=== PATIENT | male | born 1940 | race Hispanic/Latino ===

== ENCOUNTER 2017-06-08 09:26 | Outpatient (CLI) | payer MEDICARE ==
--- NOTE | 2017-06-08 12:14 | CT ---
CT OF THE ABDOMEN AND PELVIS WITH AND WITHOUT IV CONTRAST: INDICATION: Gross hematuria and difficulty urinating. COMPARISON: None. FINDINGS: No renal or ureteral calculus is evident. No definite urothelial lesion is identified. There is a large prostate measuring 8/5 cm. The enlargement of the prostate is displacing the distal left uret er slightly anteriorly and superiorly. There is no alfredo hydronephrosis. There are tiny renal hypodensities bilaterally likely reflective of tiny cysts. There is a small cy st within the right hepatic lobe and left hepatic lobe. There is a moderate pericardial effusion. There are perihilar interstitial opacities involving both lung bases, right greater than left, whic h may reflect edema. The adrenal glands are normal appearing. The spleen and pancreas are normal-appearing. There are moderate vascular calcifications. There is scattered colonic diverticula. There are numerous surgical clips involving the lower abdominal wall likely related to prior hernia repair. There is diffuse osteopenia. There is scattered degenerative change. IMPRESSION: 1. No solid renal lesion or urothelial lesion identified. No renal or ureteral calculus noted. Th ere are small renal cysts bilaterally. 2. Enlarged prostate. The enlarged prostate is slightly displacing the distal aspect of the left u reter anteriorly and superiorly. There is no associated hydronephrosis. 3. Hepatic cysts. 4. Moderate cardiomegaly with a suggestion of some mild congestive heart failure versus volume over load. Recommend correlation. 5. Colonic diverticulosis. 6. Postsurgical change of prior inguinal hernia repairs. 7. Other chronic findings as above. CODE T POS: [facility]
[2017-06-08] MEDS ORDERED: Iopamidol 370 76% 100 ML VIAL ONE (14:08)
== END 2017-06-08 09:27 | disposition home or self-care (01) ==
LOC: CT 09:26
PROVIDERS: ATTEND Urology
DX: R31.0 Gross hematuria (principal); R33.9 Retention of urine, unspecified; N40.0 Benign prostatic hyperplasia without lower urinary tract symptoms; K76.89 Other specified diseases of liver; I51.7 Cardiomegaly; K57.30 Diverticulosis of large intestine without perforation or abscess without bleeding
CPT/HCPCS: 74178

== ENCOUNTER 2017-06-20 10:41 | Emergency (ER) | payer MEDICARE ==
[2017-06-20 11:39] LABS: #Eosinphils 0.1 thou/uL (0.0-0.7); #Lymphocytes 0.8 thou/uL (1.20-3.40); #Monocytes 0.6 thou/uL (0.11-0.59); #Neutrophils 5.1 thou/uL (1.40-6.50); %Basophils 0.3 % (0.0-1.0); %Eosinophils 1.7 % (0.0-10.0); %Lymphocytes 11.8 % (21.0-51.0); %Monocytes 8.7 % (0.0-10.0); Hematocrit 42.1 % (42.0-52.0); Mean Platelet Volume 6.8 fL (7.4-10.4); White Blood Cell (WBC) Count 6.6 thou/uL (4.8-10.8)
[2017-06-20 12:01] LABS: ALT (SGPT) 16 U/L (8-55); AST (SGOT) 18 U/L (5-34); Alkaline Phosphatase 71 U/L (40-150); Anion Gap 13 mmol/L (10-20); BUN (Urea Nitrogen) 20 mg/dL (8.4-25.7); Bilirubin, Total 0.7 mg/dL (0.2-1.2); Calc. Creatinine Clearance 0 mL/min (70-130); Calcium 9.4 mg/dL (7.8-10.44); Carbon Dioxide 23 mmol/L (23-31); Chloride 104 mmol/L (98-107); Estimated GFR-MDRD 79; Globulin 3.9 g/dL (2.4-3.5); Protein, Total 7.8 g/dL (5.8-8.1)
[2017-06-20 12:04] LABS: Bilirubin Negative (Negative); Blood, Urine Large (Negative); Glucose, Urine (Dipstick) Negative (Negative); Ketone, Urine Negative (Negative); Nitrite Negative (Negative); Protein, Urine (Dipstick) 30 mg/dL (Neg-Trace); Urobilinogen 0.2 mg/dL (0.2-1.0)
[2017-06-20 12:06] LABS: Bacteria/HPF None Seen HPF (None Seen); Hyaline Casts/LPF 0-3 HYALINE CAST LPF (0-3 Hyaline); Squamous Epithelial 0-3 HPF (0-3); WBC/HPF 0-3 HPF (0-3)
== END 2017-06-20 12:29 | disposition home or self-care (01) ==
LOC: ERS 10:41
DX: R33.9 Retention of urine, unspecified (principal); I10 Essential (primary) hypertension
CPT/HCPCS: 36415; 51702; 80053; 81003; 81015; 85025

== ENCOUNTER 2017-06-26 14:38 | Emergency (ER) | payer MEDICARE ==
[2017-06-26 15:18] LABS: Hematocrit 37.3 % (42.0-52.0); Mean Platelet Volume 6.7 fL (7.4-10.4); Red Blood Cell (RBC) Count 4.36 mill/uL (4.70-6.10); White Blood Cell (WBC) Count 12.7 thou/uL (4.8-10.8)
[2017-06-26 15:31] LABS: Lactic Acid - Sepsis 1.7 mmol/L (0.5-2.2)
[2017-06-26 15:36] LABS: ALT (SGPT) 25 U/L (8-55); AST (SGOT) 27 U/L (5-34); Alkaline Phosphatase 56 U/L (40-150); Anion Gap 12 mmol/L (10-20); BUN (Urea Nitrogen) 26 mg/dL (8.4-25.7); Bilirubin, Total 0.5 mg/dL (0.2-1.2); Calc. Creatinine Clearance 0 mL/min (70-130); Calcium 8.6 mg/dL (7.8-10.44); Carbon Dioxide 23 mmol/L (23-31); Chloride 100 mmol/L (98-107); Estimated GFR-MDRD 39; Globulin 3.5 g/dL (2.4-3.5); Protein, Total 6.9 g/dL (5.8-8.1)
[2017-06-26 15:44] LABS: Band 4 % (5-11); Neutrophil 86 % (42-75)
[2017-06-26 16:21] LABS: Bilirubin Negative (Negative); Blood, Urine Large (Negative); Glucose, Urine (Dipstick) Negative (Negative); Ketone, Urine Negative (Negative); Nitrite Negative (Negative); Protein, Urine (Dipstick) Trace mg/dL (Neg-Trace)
[2017-06-26 16:24] LABS: Bacteria/HPF None Seen HPF (None Seen); Hyaline Casts/LPF 0-3 HYALINE CAST LPF (0-3 Hyaline); RBC/HPF 21-50 HPF (0-3); Squamous Epithelial 0-3 HPF (0-3)
--- NOTE | 2017-06-26 16:29 | RAD ---
SINGLE VIEW OF THE CHEST: Comparison: 01-30-13 History: Weakness and fever. FINDINGS: Single view of the chest shows an enlarged but stable cardiomediastinal silhouette. Increased inters titial markings are present. There is no evidence of consolidation or pleural effusion. IMPRESSION: No evidence of acute cardiopulmonary disease. POS: [facility]
== END 2017-06-26 17:57 | disposition home or self-care (01) ==
LOC: ERS 14:38
DX: E86.0 Dehydration (principal); R50.9 Fever, unspecified; I10 Essential (primary) hypertension; N40.1 Benign prostatic hyperplasia with lower urinary tract symptoms; N39.498 Other specified urinary incontinence
CPT/HCPCS: 36415; 71010; 80053; 81003; 81015; 83605; 85025; 87040; 87077; 87086; 87186; 93005; 96360

== ENCOUNTER 2017-06-28 20:29 | Inpatient (IN) | payer MEDICARE ==
[2017-06-28 21:29] LABS: Hematocrit 33.8 % (42.0-52.0); Mean Platelet Volume 7.1 fL (7.4-10.4); Red Blood Cell (RBC) Count 3.99 mill/uL (4.70-6.10); White Blood Cell (WBC) Count 8.7 thou/uL (4.8-10.8)
[2017-06-28 21:41] LABS: Bilirubin Negative (Negative); Glucose, Urine (Dipstick) Negative (Negative); Ketone, Urine Negative (Negative); Nitrite Negative (Negative); Protein, Urine (Dipstick) 30 mg/dL (Neg-Trace); Urobilinogen 0.2 mg/dL (0.2-1.0)
[2017-06-28 21:42] LABS: Lactic Acid - Sepsis 1.1 mmol/L (0.5-2.2)
[2017-06-28 21:43] LABS: Bacteria/HPF 1+ HPF (None Seen); Squamous Epithelial 0-3 HPF (0-3)
[2017-06-28 21:43] LABS: Band 14 % (5-11); Neutrophil 82 % (42-75)
[2017-06-28 21:49] LABS: ALT (SGPT) 39 U/L (8-55); AST (SGOT) 54 U/L (5-34); Alkaline Phosphatase 59 U/L (40-150); Anion Gap 11 mmol/L (10-20); BUN (Urea Nitrogen) 46 mg/dL (8.4-25.7); Bilirubin, Total 0.4 mg/dL (0.2-1.2); Calc. Creatinine Clearance 0 mL/min (70-130); Calcium 8.2 mg/dL (7.8-10.44); Carbon Dioxide 23 mmol/L (23-31); Chloride 96 mmol/L (98-107); Estimated GFR-MDRD 34; Globulin 3.4 g/dL (2.4-3.5); Protein, Total 6.2 g/dL (5.8-8.1)
[2017-06-28 22:00] LABS: Blood, Urine Small (Negative); Hyaline Casts/LPF 0-3 HYALINE CAST LPF (0-3 Hyaline); Transitional Epithelial 0-3 HPF (0-3); Yeast-All Forms None Seen HPF (None Seen)
[2017-06-28] MEDS ORDERED: cefTRIAXone\\ROCEPHIN 2 GM VIAL ONE (22:02)
[2017-06-28] MEDS ORDERED: ADMIXTURE FEE IVPB SCH (22:15)
[2017-06-28] MEDS ORDERED: Vancomycin HCl 1.25 GM in Sodium Chloride 0.9% 250 ML 250 ML IVPB SCH (22:15)
[2017-06-28] MEDS ORDERED: GENTAMICIN SULFATE IVPB SCH (22:15)
[2017-06-28] MEDS ORDERED: SODIUM CHLORIDE IVPB SCH (22:15)
[2017-06-28] MEDS ORDERED: Gentamicin Sulfate 360 MG, Admixture Fee 1 EACH in Sodium Chloride 0.9% 100 ML IVPB SCH (22:30)
[2017-06-28] MEDS ORDERED: diphenhydrAMINE 50 MG/ML VIAL ONE (23:01)
[2017-06-28] MEDS ORDERED: methylPREDNISolone Sod Succ/PF 125 MG/2 ML VIAL ONE (23:04)
[2017-06-28] MEDS ORDERED: Water For Inject, Bacteriostat 30 ML ONE (23:04)
[2017-06-28] MEDS ORDERED: Famotidine/PF 20 mg/2ml Vial ONE (23:13)
[2017-06-28] MEDS ORDERED: Albuterol Sulfate 2.5 mg/3 ml Neb ONE (23:37)
--- NOTE | 2017-06-28 23:40 | PDOC.EVN ---
Event Note - Event Note Event Note: [id number] H&P Dictated 1. UTI 2. SEPSIS 3. EDUAR 4. Hyponatremia 5. Allergic reaction plan: see orders
[2017-06-28] MEDS ORDERED: Acetaminophen 325 MG TAB PO PRN (23:41)
[2017-06-28] MEDS ORDERED: Ondansetron HCl/PF 4 MG/2 ML Vial IVP PRN (23:41)
[2017-06-28] MEDS ORDERED: HYDROcodone/Acetaminophen 5/325 mg Tablet PO PRN (23:41)
[2017-06-29] MEDS: Sodium Chloride 0.9% 1,000 ML IV SCH ×4 (01:07→20:42)
[2017-06-29] MEDS ORDERED: Vancomycin HCl 1.25 GM in Sodium Chloride 0.9% 250 ML 250 ML IVPB SCH ×2 (01:15→14:00)
[2017-06-29 05:35] LABS: Hematocrit 33.9 % (42.0-52.0); Mean Platelet Volume 7.3 fL (7.4-10.4); Red Blood Cell (RBC) Count 3.98 mill/uL (4.70-6.10); White Blood Cell (WBC) Count 7.1 thou/uL (4.8-10.8)
[2017-06-29 05:49] LABS: Band 16 % (5-11); Neutrophil 80 % (42-75)
[2017-06-29 05:53] LABS: Anion Gap 10 mmol/L (10-20); BUN (Urea Nitrogen) 42 mg/dL (8.4-25.7); Calc. Creatinine Clearance 46 mL/min (70-130); Calcium 8.2 mg/dL (7.8-10.44); Carbon Dioxide 26 mmol/L (23-31); Chloride 102 mmol/L (98-107); Estimated GFR-MDRD 42
[2017-06-29] MEDS ORDERED: diphenhydrAMINE 25 MG CAP PO PRN (06:00)
--- NOTE | 2017-06-29 07:41 | HP ---
DATE OF ADMISSION: 06/28/2017 CHIEF COMPLAINT: Fever and weakness. HISTORY OF PRESENT ILLNESS: The patient is a 77 years old male with past medical history of BPH, hypertension, now came to the hospital because of fever. The patient started having fever and chills on . The patient went and saw the urologist. The patient was diagnosed with urinary tract infection and patient was advised to start ciprofloxacin. The patient started taking ciprofloxacin since Tuesday, symptoms did not improve on Tuesday, so patient was brought to the ER. Upon ER arrival, the patient was found to be dehydrated, so patient was given IV fluids and advised to continue Cipro as an outpatient. The patient's symptoms did not improve in the last few days having worsening fever and also having cough, also having generalized body aches and any loss of appetite, so patient was brought to the ER. Upon ER arrival, the patient was diagnosed to have urinary tract infection, so patient was given Rocephin, but the patient developed an allergic reaction with Rocephin. The patient developed some erythema on the chest and on the face and also had some lip swelling and eye swelling, so Rocephin was stopped and patient was given IV Benadryl, Pepcid and Solu-Medrol also. The patient denies any other complaints at this time. PAST MEDICAL HISTORY: Hypertension, BPH. PAST SURGICAL HISTORY: Hernia repair. SOCIAL HISTORY: Denies smoking, denies alcohol, denies any drugs. FAMILY HISTORY: Positive for heart problems. REVIEW OF SYSTEMS: Constitutional: Positive for fever, chills, body aches. Eyes: Positive for eye swelling following the allergy infection. Throat: Denies any throat pain. Positive for lip swelling. Neck: Denies any neck pain. Cardiovascular system: Denies chest pain, denies palpitations. Respiratory system: Denies any cough, denies any sputum production. Gastrointestinal: Denies nausea, vomiting. Genitourinary: Positive for urinary tract infection and prostate problems. Integumentary: Positive for erythematous rash. Psychiatric: Denies any depression. Denies any anxiety. All other review of systems are reviewed and are negative. PHYSICAL EXAMINATION: CONSTITUTIONAL/VITAL SIGNS: At the time of H and P performed, blood pressure is 103/55, pulse ox is 97%, respiratory rate 18. GENERAL: The patient appears tired. Eyes: Positive for swelling. Tongue: No swelling seen. Throat: Clear, no postnasal drainage seen. No swelling in the posterior tongue seen, able to visualize uvula and posterior pharynx. Lip, slight swelling present, lower lip. NECK: Supple, no JVD. CARDIOVASCULAR SYSTEM: S1, S2 present. Regular rate and rhythm, no murmurs, no rubs, no gallops. RESPIRATORY SYSTEM: No wheezing, no rhonchi. Breath sounds bilaterally. GASTROINTESTINAL: Abdomen: Soft, nontender, no guarding, no organomegaly, no masses felt. MUSCULOSKELETAL: No edema. INTEGUMENTARY: Positive for erythema seen on the chest wall and on the right side of the neck. CRANIAL NERVOUS SYSTEM: Awake, follows commands. Speech clear. PSYCHIATRIC: Mood appropriate at this time. LABORATORY DATA: At the time of H and P performed, sodium 127, potassium 3.8, chloride 96, CO2 of 23, BUN 46, creatinine 1.9, AST 54, ALT 39, albumin 2.8. UA positive for greater than 50 to too numerous to count wbc's. White count 8.7 , hemoglobin 11.3, platelet count is 195. ASSESSMENT AND PLAN: The patient is 77 years old male who was admitted secondary to urinary tract infection. 1. Sepsis secondary to urinary tract infection. Plan to broad spectrum antibiotics. Plan to send urine for culture and sensitivity and blood cultures also. We will follow the patient closely. 2. Urinary tract infection. Reason culture done showed Enterococcus urinary tract infection. We will go ahead and start patient on vancomycin and also on meropenem. We will monitor the patient closely for any cross reactivity. We will go ahead and consult ID to evaluate the patient. 3. History of benign prostatic hypertrophy. Continue Flomax. Plan to consult the patient's urologist as family requested. 4. Hypertension. Hold blood pressure medications. 5. Acute kidney injury and hyponatremia secondary to NSAID usage and hypotension and hypovolemia. Plan to start patient on IV fluids, check BMP in a.m. The urine creatinine does not improve, we will do further urine studies. 6. Allergic reaction: will start PN benadryl, iv solumderol and pepcid The case was discussed in detail with the patient and patient's family also. I did explain to the patient's son, patient's daughter, and the patient's also in detail and explained the patient's condition, they all understood, and answered all of that questions also. ALDEN
[2017-06-29] MEDS: Aztreonam 1 GM in Sodium Chloride 0.9% 100 ML IVPB SCH ×2 (09:33→20:43)
[2017-06-29] MEDS: Heparin 5,000 UNITS/ML VIAL SC SCH ×2 (09:34→09:46)
[2017-06-29] MEDS: Tamsulosin HCl 0.4 MG CAP PO SCH (09:34)
--- NOTE | 2017-06-29 11:51 | PDOC.PN ---
- Subjective Encounter Start Date: 06/29/17 Encounter Start Time: 11:45 Subjective: f/u for UTI with Enterococcus and allergic response to Rocephin. No -: documented fever and WBC normal. Receiving Aztreonam and Vancomycin -: No new complaints. - Objective MAR Reviewed: Yes Vital Signs & Weight: Vital Signs (12 hours) Temp Pulse Resp BP Pulse Ox 06/29/17 07:59 97.5 F L 66 20 143/63 H 97 06/29/17 04:28 97.8 F 71 20 108/55 L 96 06/29/17 00:45 98.0 F 78 18 125/57 L 100 06/29/17 00:28 98.0 F 78 18 100 I&O: 06/28/17 06/29/17 06/30/17 06:59 06:59 06:59 Intake Total 625 Output Total 650 Balance -25 Result Diagrams: 06/29/17 04:32 06/29/17 04:32 Additional Labs: Microbiology 06/26/17 16:15 Nasal swab Influenza Types A,B Direct EIA - Final 06/26/17 16:02 Urine voided Urine Culture - Final Enterococcus species 06/28/17 21:12 Venous blood - Right Hand Blood Culture - Preliminary Specimen has been received and culture in progress. No Growth to date. 06/28/17 21:00 Venous blood - Right Arm Blood Culture - Preliminary Specimen has been received and culture in progress. No Growth to date. Laboratory Tests 06/20/17 06/26/17 06/28/17 11:25 14:55 21:12 Neutrophils % (Manual) Band Neuts % (Manual) Creatinine 0.93 1.70 H 1.92 H Estimated GFR (MDRD) 79 39 34 06/28/17 06/29/17 21:12 04:32 Neutrophils % (Manual) 82 H 80 H Band Neuts % (Manual) 14 H 16 H Creatinine Estimated GFR (MDRD) EKG Reviewed by me: Yes (Tele - SR in 60's) Phys Exam - Physical Examination Constitutional: NAD HEENT: PERRLA, oral pharynx no lesions Neck: no JVD, supple Respiratory: no wheezing, clear to auscultation bilateral Cardiovascular: RRR Gastrointestinal: soft, non-tender, no distention, positive bowel sounds Musculoskeletal: no edema, pulses present Neurological: normal sensation, moves all 4 limbs Psychiatric: A&O x 3 Skin: normal turgor, cap refill <2 seconds Dx/Plan (1) UTI (urinary tract infection) due to Enterococcus Code(s): N39.0 - URINARY TRACT INFECTION, SITE NOT SPECIFIED; B95.2 - ENTEROCOCCUS THE CAUSE OF DISEASES CLASSIFIED ELSEWHERE Status: Acute Comment: Continue Aztreonam and Vancomycin, monitor clinical response, ID consulted for further recommendations (2) EDUAR (acute kidney injury) Code(s): N17.9 - ACUTE KIDNEY FAILURE, UNSPECIFIED Status: Acute Comment: Suspect due to hypovolemia, continue IVF's and avoid nephrotoxic agents and contrast media (3) CKD (chronic kidney disease), stage II Code(s): N18.2 - CHRONIC KIDNEY DISEASE, STAGE 2 (MILD) Status: Chronic Comment: See above (4) Hyponatremia Code(s): E87.1 - HYPO-OSMOLALITY AND HYPONATREMIA Status: Acute Comment: Improved, continue IVF with NS, encourage increased dietary intake, serial Na+ monitoring (5) Hypokalemia Code(s): E87.6 - HYPOKALEMIA Status: Acute Comment: KCL supplementation - Plan plan discussed w/ family, continue antibiotics, out of bed/ambulate, DVT proph w /SCDs Stable overall -: Continue Aztreonam and Vancomycin pending final cx results -: Continue low-volume IVF's -: Avoid nephrotoxic agents -: Continue Finasteride and Flomax * AM lab: BMP, CBC
[2017-06-29] MEDS ORDERED: FLU VACC TS2017-18 (>65YR) 0.5 ML SYRINGE IM ONE (12:00)
--- NOTE | 2017-06-29 19:21 | CON ---
DATE OF CONSULTATION: 06/29/2017 CONSULTING PHYSICIAN: Hans Schroeder. CONSULTED PHYSICIAN: Dr. Reymundo Corcoran with Urology. REASON FOR CONSULTATION: Urinary tract infection. HISTORY OF PRESENT ILLNESS: Mr. Miller is a 77-year-old male, who is well known to me f rom outpatient office side. He previously had seen me for urinary retention and urinary tract infec tion. He had failed a voiding trial and due to significant bother with his indwelling Sullivan cathete r, we had instructed him on how to clean intermittent catheterization, which he had began doing. He was successful with his CIC; however, he was only able to urinate some of the time and not all the time. He had already been on Flomax and I had initiated finasteride as he did not wish to proceed f orward with TURP at the current time and wish to try further medical therapy before resorting to the surgical treatments for his bladder. The patient then started having lower urinary tract symptoms of dysuria, burning bladder pain and feelings of malaise, we have started him on ciprofloxacin for p resumed urinary tract infection. When he did not get better on the ciprofloxacin after approximatel y 24 to 48 hours, he went to the emergency room on Tuesday, at which time he was diagnosed with dehyd ration. He was not found to have an elevated white count or any significant concerning findings at that time other than being slightly lethargic and somewhat dizzy. He was asked to stay on his cipro floxacin while urine culture was taken and it was currently pending. After being discharged home, indio bateman continued to do poorly, became more lethargic, anorexic, feeling of increased dizziness and genera lized malaise, he returned to the emergency room again yesterday, at which time they were admitted t o the hospital and started on antibiotics. He was initially started on IV Rocephin, but unfortunate ly experienced allergic reaction with swelling. He is then now on Azactam, which he is starting to feel significantly better. Per the family's request, I have been consulted for assistance on his ur inary tract infection and further urinary management. He currently states he is voiding on his own and is not currently using catheters. His medicine list shows that he is taking the finasteride and tamsulosin while in the hospital. He has also been placed on vancomycin and Solu-Medrol due to pre sumed sepsis. He denies any significant dysuria or hematuria currently. He is not having any fever s currently. He has not been catheterized since he has been here. ALLERGIES: ROCEPHIN. HOME MEDICATIONS: 1. Tamsulosin. 2. Ibuprofen. 3. Finasteride. 4. Ciprofloxacin. 5. Lisinopril (ciprofloxacin has been discontinued at this time). PAST MEDICAL HISTORY: 1. Hypertension. 2. Benign prostatic hypertrophy. PAST SURGICAL HISTORY: Hernia repairs. FAMILY HISTORY: Significant for heart disease, otherwise no significant history of prostate cancer or significant urinary problems. SOCIAL HISTORY: The patient does not smoke, denies alcohol abuse or illicit drug use. He is marrie d and lives with his . REVIEW OF SYSTEMS: A 12-point review of systems is significant for previous history of fevers and c hills with body aches, although these have now resolved. He denies any current dysuria or hematuria . He is not having any chest pain or shortness of breath. He is complaining of weakness and fatigu e. He denies any lower extremity swelling. Remainder of 12-point review of systems was reviewed an d otherwise unremarkable. PHYSICAL EXAMINATION: VITAL SIGNS: Temperature 97.7, pulse 68, respirations 23, blood pressure 121/68, saturation 95% on room air. GENERAL: No apparent distress, appears somewhat lethargic and tired, but is otherwise communicative and talking to me clearly. HEENT: Normocephalic, atraumatic. Pupils are symmetric and round. There is minimal amount of jordan orbital edema at this point. Sclerae are nonicteric. Mucous membranes are moist. Trachea is midli ne. CARDIOVASCULAR: Regular rate and rhythm. Normal S1 and S2, symmetric pulses. CHEST: No increased work of breathing. Symmetric expansion of lungs, mild tachypnea, clear anterio rly. ABDOMEN: Soft, nontender, nondistended, positive bowel sounds, no hepatosplenomegaly. No rebound, guarding or peritoneal signs. GENITOURINARY: No Sullivan catheter in place. Penis is otherwise unremarkable. Testes are unremarkab le. LIZZETTE is deferred at this time. EXTREMITIES: No clubbing, cyanosis or edema. SKIN: Warm, dry, good turgor, no rashes. NEUROLOGIC: Cranial nerves II through XII grossly intact. No focal sensory or motor deficits ident ified. MUSCULOSKELETAL: No joint deformities or joint erythema noted. Full range of motions and moves all extremities. LABORATORY AND X-RAY FINDINGS: The full set of labs are in the [employer] system, which I have review ed. Of note, the patient's white count is 7.1 with hemoglobin of 11. Sodium is 134, which is impro matteo from 127. Creatinine is currently 1.59, improved from 1.92. Urinalysis demonstrates greater th an 50 white cells, 7 to 10 red cells, moderate leukocyte esterase, small blood, 1+ bacteria. Urine culture demonstrates Enterococcus species from 06/26/2017 from his prior ER visit. Blood cultures c urrently are negative and the urine culture from this admission is currently pending. The Enterococ cus from his prior ER visit was resistant to ciprofloxacin and levofloxacin, which would explain why the patient did not improve on antibiotic therapy outpatient. ASSESSMENT AND PLAN: A 77-year-old male with likely prostatitis with malaise and early sep sis. He is currently being treated with Azactam and vancomycin. The vancomycin is likely what is r esponsive for the patient improving as that is what his Enterococcus was most sensitive to. He woul d also appropriately be placed on amoxicillin or Augmentin, which he can take when he is discharged. I would recommend treatment for at least 4 weeks for presumed prostatitis. Additionally, I would not adjust his antibiotics completely until the current urine culture is finalized to ensure that th ere are no other organisms present. From my standpoint, it would be imperative to ensure the patien t is voiding adequately, so he does not get repeat or complicated infections. Additionally, I would recommend a postvoid residual by bladder scan at least once after the patient voids to ensure that he is emptying. If he is not emptying, he will need to resume clean intermittent catheterization wh ile in the hospital, which can either be performed by himself or by the nursing staff. The nursing staff can also catheterize him at any point as needed for episodes of being unable to urinate. I wi ll make an order for this. From my standpoint, I also would recommend given the patient has had ano ther infection that he would probably be best to do a TURP rather than continuing to wait for the fi nasteride to shrink his prostate and remaining on the CIC. Given the patient is currently septic wi th significant fatigue and malnourishment, I would recommend deferring any surgical treatment until several weeks later when his infection has resolved and the patient is stronger and doing better. I discussed with the family and they are in agreement with the plan. SUMMARY OF RECOMMENDATIONS: 1. Postvoid residual via bladder scan immediately after the patient voids. 2. Standing order for CIC as needed if the patient cannot urinate or is having difficulty emptying. 3. Continue Flomax and finasteride while inpatient. 4. Continue IV antibiotics until final urine culture speciates. 4. Based on prior ER urine culture, the patient can probably be discharged on amoxicillin or Augmen tin therapy for 4 weeks, assuming no other changes to the culture drawn from the . 5. We will have the patient follow up with me as an outpatient for cystoscopy in preparation for a TURP once he is stronger and in better health.
[2017-06-30] MEDS: Vancomycin HCl 1 GM in Premix Bag 1 BAG IVPB SCH (01:26)
[2017-06-30] MEDS: Sodium Chloride 0.9% 1,000 ML IV SCH ×2 (06:05→15:20)
[2017-06-30 06:51] LABS: Anion Gap 12 mmol/L (10-20); BUN (Urea Nitrogen) 37 mg/dL (8.4-25.7); Calc. Creatinine Clearance 60 mL/min (70-130); Calcium 8.1 mg/dL (7.8-10.44); Carbon Dioxide 24 mmol/L (23-31); Chloride 106 mmol/L (98-107); Estimated GFR-MDRD 56
[2017-06-30 06:52] LABS: Band 13 % (5-11); Hematocrit 34.5 % (42.0-52.0); Mean Platelet Volume 7.4 fL (7.4-10.4); Neutrophil 83 % (42-75); Red Blood Cell (RBC) Count 4.02 mill/uL (4.70-6.10); White Blood Cell (WBC) Count 7.6 thou/uL (4.8-10.8)
[2017-06-30] MEDS ORDERED: Tamsulosin HCl 0.4 MG CAP PO SCH (09:00)
--- NOTE | 2017-06-30 09:36 | PDOC.PN ---
- Subjective Encounter Start Date: 06/30/17 Encounter Start Time: 09:30 Subjective: f/u for UTI and urinary retention. Tx with Vancomycin and Aztreonam. -: Feels good overall. Has not had to use self-cath since admit. -: No fever or dysuria. - Objective MAR Reviewed: Yes Vital Signs & Weight: Vital Signs (12 hours) Temp Pulse Resp BP Pulse Ox 06/30/17 04:00 97.3 F L 72 20 158/78 H 97 Weight Weight 189 lb 1.6 oz I&O: 06/29/17 06/30/17 07/01/17 06:59 06:59 06:59 Intake Total 625 1600 Output Total 650 1075 Balance -25 525 Result Diagrams: 06/30/17 05:55 06/30/17 05:55 Additional Labs: Microbiology 06/26/17 16:15 Nasal swab Influenza Types A,B Direct EIA - Final 06/26/17 16:02 Urine voided Urine Culture - Final Enterococcus species 06/28/17 21:20 Urine Straight Catheter Urine Culture - Preliminary 06/28/17 21:12 Venous blood - Right Hand Blood Culture - Preliminary Specimen has been received and culture in progress. No Growth to date. 06/28/17 21:00 Venous blood - Right Arm Blood Culture - Preliminary Specimen has been received and culture in progress. No Growth to date. Laboratory Tests 06/20/17 06/26/17 06/28/17 11:25 14:55 21:12 Neutrophils % (Manual) Band Neuts % (Manual) Sodium Creatinine 0.93 1.70 H 1.92 H Estimated GFR (MDRD) 79 39 34 06/28/17 06/29/17 06/29/17 21:12 04:32 04:32 Neutrophils % (Manual) 82 H 80 H Band Neuts % (Manual) 14 H 16 H Sodium 134 L Creatinine 1.59 H Estimated GFR (MDRD) EKG Reviewed by me: Yes (Tele - SR in 60's) Phys Exam - Physical Examination Constitutional: NAD HEENT: PERRLA, oral pharynx no lesions Neck: no JVD, supple Respiratory: no wheezing, clear to auscultation bilateral Cardiovascular: RRR Gastrointestinal: soft, non-tender, no distention, positive bowel sounds Musculoskeletal: no edema, pulses present Neurological: normal sensation, moves all 4 limbs Psychiatric: A&O x 3 Skin: normal turgor, cap refill <2 seconds Dx/Plan (1) UTI (urinary tract infection) due to Enterococcus Code(s): N39.0 - URINARY TRACT INFECTION, SITE NOT SPECIFIED; B95.2 - ENTEROCOCCUS THE CAUSE OF DISEASES CLASSIFIED ELSEWHERE Status: Acute Plan: Await final Ucx results, continue Vancomycin and Aztreonam, likely can transition to Augmentin for home rx Comment: Continue Aztreonam and Vancomycin, monitor clinical response, ID consulted for further recommendations (2) EDUAR (acute kidney injury) Code(s): N17.9 - ACUTE KIDNEY FAILURE, UNSPECIFIED Status: Acute Plan: Resolving Comment: Suspect due to hypovolemia, continue IVF's and avoid nephrotoxic agents and contrast media (3) CKD (chronic kidney disease), stage II Code(s): N18.2 - CHRONIC KIDNEY DISEASE, STAGE 2 (MILD) Status: Chronic Comment: See above (4) Hyponatremia Code(s): E87.1 - HYPO-OSMOLALITY AND HYPONATREMIA Status: Acute Plan: Resolved Comment: Improved, continue IVF with NS, encourage increased dietary intake, serial Na+ monitoring (5) Hypokalemia Code(s): E87.6 - HYPOKALEMIA Status: Acute Comment: KCL supplementation - Plan plan discussed w/ family, continue antibiotics, out of bed/ambulate, DVT proph w /SCDs Stable overall -: Continue Vancomycin and Aztreonam another 24h -: Continue IVF's another 24h -: Check post-void residuals per Urology recommendations -: AM lab: BMP * .
[2017-06-30] MEDS: Aztreonam 1 GM in Sodium Chloride 0.9% 100 ML IVPB SCH ×2 (10:10→22:00)
[2017-06-30] MEDS: Tamsulosin HCl 0.4 MG CAP PO SCH (10:13)
[2017-06-30] MEDS: Finasteride 5 MG TAB PO SCH (10:13)
[2017-06-30 13:30] VITALS: BMI 26.4
--- NOTE | 2017-06-30 16:42 | PRG ---
DATE OF SERVICE: 06/30/2017 SUBJECTIVE: The patient states he is feeling much better. He has been more energetic. He is now w alking the halls, although he is still weak. His appetite has increased and he states he feels sign ificantly improved from prior. Urine cultures currently are growing E. coli, but susceptibilities h ave not yet resulted. OBJECTIVE: VITAL SIGNS: Temperature 97.7, pulse 64, respirations 20, blood pressure 173/76, and saturation 99% on room air. GENERAL: No apparent distress, communicative and alert. CARDIOVASCULAR: Regular rate and rhythm. Normal S1 and S2. CHEST: Clear anteriorly. ABDOMEN: Soft, nontender, and nondistended. EXTREMITIES: No clubbing, cyanosis or edema. LABORATORY DATA: On laboratory data, a full set of labs are in the [employer] system, which I have re viewed. Of note, the patient's white count is 7.6, creatinine is improved to 1.24. Urine culture c urrently is growing E. coli without susceptibilities currently available. ASSESSMENT AND PLAN: A 77-year-old male with benign prostatic hypertrophy and lower urinar y tract symptoms with likely prostatitis. I definitely recommend keeping his IV antibiotics on boar d until the Escherichia coli has speciated. Once susceptibilities are available, would recommend tr eatment based off of available cultures. The patient's previous Enterococcus should also be treated as the patient is currently on vancomycin which would not allow the Enterococcus to grow, but the E nterococcus may still be present within the prostate and cessation of treatment of Enterococcus is d one prematurely, patient may experience a relapse of his infection. Ideally, if the patient can fin d a single antibiotic agent that will cover both organisms for 4 weeks that would be ideal; otherwis e, he has to take two separate antibiotics. For now, patient is doing much better and it appears th at he will hopefully be discharged soon. I will sign off at this time. Please reconsult with any q uestions or concerns. SUMMARY OF RECOMMENDATIONS: 1. Treat Enterococcus from prior urine culture for 4 weeks with amoxicillin. 2. Treat E. coli based on sensitivities if overlap is available between E. coli and Enterococcus wi th an oral agent that would be ideal. However, keep in mind nitrofurantoin does not penetrate into the tissues, it would not be an acceptable alternative for prostatitis. 3. Patient has scheduled to follow up with me already and to keep that appointment. 4. Patient should continue to take Flomax and tamsulosin.
[2017-07-01] MEDS: cloNIDine 0.1 MG TAB PO PRN ×2 (00:17→09:51)
[2017-07-01 01:50] LABS: Vancomycin, Trough 7.8 ug/mL
[2017-07-01] MEDS ORDERED: Vancomycin HCl 1.5 GM in Sodium Chloride 0.9% 250 ML 300 ML IVPB SCH (02:00)
[2017-07-01] MEDS: Vancomycin HCl 1 GM in Premix Bag 1 BAG IVPB SCH (02:45)
[2017-07-01] MEDS: Sodium Chloride 0.9% 1,000 ML IV SCH ×2 (02:54→13:37)
[2017-07-01 05:20] LABS: Anion Gap 11 mmol/L (10-20); BUN (Urea Nitrogen) 35 mg/dL (8.4-25.7); Calc. Creatinine Clearance 68 mL/min (70-130); Calcium 7.9 mg/dL (7.8-10.44); Carbon Dioxide 24 mmol/L (23-31); Chloride 105 mmol/L (98-107); Estimated GFR-MDRD 65
--- NOTE | 2017-07-01 06:34 | CON ---
DATE OF CONSULTATION: 06/30/2017 REASON FOR CONSULTATION: Prostatitis with obstructive symptoms. HISTORY OF PRESENT ILLNESS: A 77-year-old with history of hypertension and benign prostatic hypertr ophy with prior episode of cystitis with obstructive symptoms 3 years ago. The patient improved aft er treatment in the outpatient setting and then never followed with his Urologist, Dr. Corcoran. The n about a week before, he developed urinary retention and symptoms of dysuria, which led to a prescr iption for ciprofloxacin and after the catheter was placed, he persisted with symptoms of body aches and anorexia, he was brought to the Emergency Room. He came to the ER and was given Rocephin with development of angioedema, urticaria and the patient was then admitted. Initial findings included a BP 103/55, pulse ox 97 and respiratory rate 18, T-max of 98.3, BP 150/72. Exam is not remarkable. Prostate exam was not done. Initial sodium 127, potassium 3.8, chloride 96, CO2 of 23, BUN 46, cre atinine 1.9, AST 54, ALT 39, albumin 2.8. Urinalysis, too numerous to count WBCs. The white cell c ount 8.7 with hemoglobin 11, platelets 195 with 82% neutrophils and 14% bands. Two sets of blood cu ltures, no growth at 48 hours and Enterococcus species, which was susceptible to amoxicillin resista nt to ciprofloxacin and E. coli with pending susceptibilities retrieved from the urine. Currently, he is feeling much better. He denies headaches, visual symptoms, sore throat, odynophagi a, dysphagia. No cough, sputum production or chest pain. No abdominal pain or diarrhea or genitour inary symptoms. Sullivan catheter has been removed. PAST MEDICAL HISTORY: Hypertension, BPH, prior UTI, hernia repair. SOCIAL HISTORY: Smoked at the age of 19 for a brief period of time and then he discontinued. FAMILY HISTORY: Coronary artery disease. 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 PHYSICAL EXAMINATION: VITAL SIGNS: His temperature is normal. Blood pressure 150/72, pulse 70, respirations 15, O2 sat 9 5%. GENERAL: He appears in no distress. SKIN: Peripheral IV access. No Sullivan catheter. No lymphadenopathy. HEENT: Ocular movements are conjugate. Oral cavity is still with quite a few teeth in place. NECK: Supple, no jugular venous distention. LUNGS: Clear to auscultation and percussion. HEART: S1, S2, regular rate. ABDOMEN: Soft, not distended or tender. No ascites. No bladder distention. No genital abnormalit ies. EXTREMITIES: No joint inflammatory activity. Pulses are 1+ in dorsalis pedis. Moves all extremiti es equally. NEUROLOGIC: Plantar responses are flexor. No clonus. Cognitive function appears to be intact. LABORATORY DATA: The labs have been reviewed above. White cell count now is 7.6, hemoglobin 11, pl atelets 211, with 82% neutrophils, 13% bands. The patient had prior abdomen and pelvis CT from May, which showed no renal lesion, enlarged p rostate, slightly displaced in the distal aspect of the left ureter, moderate cardiomegaly, divertic ulosis. 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 DISCUSSION: We will request allergy testing to see if we can eventually consider discharge planning with an oral regimen, which would most likely be a beta lactam plus/minus quinolone to cover all th e organisms. If he fails the allergy testing, then we would have to place a PICC line and continue IV vancomycin, plus/minus quinolone depending on susceptibilities of the E. coli. The duration of t herapy is probably around 4 weeks in view of the likely presence of prostatitis. Check bladder scan to verify proper emptying after removal of the catheter.
[2017-07-01 09:47] VITALS: TEMP 97.5
[2017-07-01] MEDS: Tamsulosin HCl 0.4 MG CAP PO SCH (09:50)
[2017-07-01] MEDS: Finasteride 5 MG TAB PO SCH (09:50)
[2017-07-01] MEDS: Aztreonam 1 GM in Sodium Chloride 0.9% 100 ML IVPB SCH (09:50)
--- NOTE | 2017-07-01 11:16 | PQF ---
CLINICAL DOCUMENTATION IMPROVEMENT CLARIFICATION FORM: ICD-10 Updated PLEASE DO AN ADDENDUM TO THE PROGRESS NOTE WITH ANY DOCUMENTATION UPDATES OR ADDITIONS AND CARRY THROUGH TO DC SUMMARY. THANK YOU. DATE: 07/01/17 ATTN: Dr. Fermin Please exercise your independent, professional judgment in responding to the clarification form. Clinical indicators are provided on the bottom of this form for your review Please check appropriate box(s): [ ] Sepsis due to: (Pna, UTI, gangrenous gall bladder, etc.) [ ] Severe sepsis with acute organ dysfunction of: (Examples: respiratory failure, encephalopathy, acute kidney failure, other ) [ x ] Localized infection without sepsis [ ] Other diagnosis [ ] Unable to determine For continuity of documentation, please document condition throughout progress notes and discharge summary. Thank You. CLINICAL INDICATORS - SIGNS / SYMPTOMS / LABS ER RECORD: MAXIMUM TEMP 102-102.9 ACUTE UTI H&P: SEPSIS SECONDARY TO UTI. EDUAR UROLOGY CONSULT: LIKELY PROSTATITIS WITH MALAISE AND EARLY SEPSIS. PN 06/30: UTI D/T ENTEROCOCCUS. ID CONSULT: HYPERTENSION, BPH & RECURRENT URINARY TRACT INFECTIONS, URINARY OBSTRUCTION, RECURRENT TRANSIENT CATHETERIZATION & THEN REMOVAL & NO EVIDENCE OF URINARY TRACT INFECTION, POSSIBLE PROSTATITIS IN SETTING OF A TYPE 1 HYPERSENSITIVITY REACTION TO CEFTRIAXONE. RISKS: H&P: HX OF HYPERTENSION & BPH W/ PRIOR EPISODE OF CYSTITIS W/ OBSTRUCTIVE SYMPTOMS 3 YRS AGO. TREATMENT: CPOE 06/29: VANCOMYCIN 1 GM IV CPOE 06/28: AZACTAM 1 GM IV Q 12 HR (This form is maintained as a part of the permanent medical record) 2014 [employer], [employer]. All Rights Reserved Renita Hayes RN, BSN [email or web address] Office: [phone] [facility]
[2017-07-01] MEDS ORDERED: Lisinopril 10 MG TAB PO SCH (11:30)
[2017-07-01 12:06] VITALS: BP 165/74
--- NOTE | 2017-07-01 13:46 | DIS ---
DATE OF ADMISSION: 06/28/2017 DATE OF DISCHARGE: 07/01/2017 DISCHARGE DIAGNOSES: 1. Urinary tract infection secondary to Enterococcus, penicillin sensitive. 2. Prostatitis. 3. Acute kidney injury secondary to bladder outlet obstruction due to prostatitis, resolved. 4. Chronic kidney disease stage 2. 5. Hyponatremia, resolved. 6. Hypokalemia, resolved. CONSULTATIONS: Dr. Rodriguez with Infectious Disease Service. Dr. Corcoran with Urology Service. PERTINENT LAB AND X-RAY FINDINGS: Sodium ranged between 127-138, potassium ranged between 3.3-3.6, creatinine ranged between 1.09-1.92 with estimated GFR ranging between 34-65. Lactic acid level 1.1 . CBC showed a hemoglobin of 11, hematocrit 35, platelet count 211. Blood cultures x2 from 017, showed no growth at 48 hours. Urine culture dated 06/28/2017, showed 50-75,000 colonies of Ent erococcus species sensitive to penicillin. HOSPITAL COURSE: Patient was admitted to the telemetry unit after initially presenting with general ized weakness and fever with suspected urinary tract infection. The patient with recent urine cultu re showing Enterococcus species treated on an outpatient basis with ciprofloxacin. The patient retu rned with shaking chills, fever and general malaise. The patient received IV Rocephin in the emerge ncy room and developed angioedema, requiring IV Benadryl and Solu-Medrol. The patient's overall ang ioedema resolved within the first 24 hours with symptomatic and supportive measures. The patient wa s transitioned to IV vancomycin and treated with this regimen throughout the hospital course. The p atient was evaluated by the Urology Service and Infectious Disease Service due to Enterococcus speci es and recurrent urinary tract infections. The patient underwent evaluation including allergy skin testing for penicillin sensitivity as the patient's urine culture did showed Enterococcus species se nsitive to penicillin. Recommendations are to continue outpatient oral antibiotic therapy with Augm entin for approximately 4 weeks to treat underlying prostatitis. The patient received general suppo rtive measures including IV fluids throughout the hospital course with resolution of electrolyte dis turbance and acute kidney injury by the time of discharge. The patient overall remained clinically stable throughout the remainder of the hospital course and ready for discharge on 07/01/2017. DISCHARGE MEDICATIONS: 1. Augmentin 500 mg 1 tab p.o. b.i.d. x4 weeks. 2. Proscar 5 mg 1 tab p.o. daily. 3. Flomax 0.4 mg 1 tab p.o. daily. 4. Ibuprofen 200 mg p.o. q.i.d. p.r.n. 5. Lisinopril 10 mg 1 tab p.o. daily. FOLLOWUP: The patient may follow up with Dr. Reymundo Corcoran and to call his office for appointment t nayla and date. Patient will follow with Dr. Florentin Spain within 7 days of discharge. CONDITION ON DISCHARGE: Stable. ACTIVITY: Ad nelda. DIET: Heart healthy. SPECIAL INSTRUCTIONS: The patient may use clean intermittent urinary catheterization at home if santy ble to void per instructions from Urology Service. CODE STATUS: FULL. DISPOSITION: Home, 07/01/2017. Total time preparing and coordinating discharge is 33 minutes.
[2017-07-02] MEDS ORDERED: Lisinopril 10 MG TAB PO SCH (09:00)
== END 2017-07-01 15:25 | disposition home or self-care (01) | DRG 690 ==
LOC: ERS 20:29 → 2NO 06-29 00:27
PROVIDERS: ADMIT Internal Medicine; ATTEND Internal Medicine
DX: N39.0 Urinary tract infection, site not specified (principal); N17.9 Acute kidney failure, unspecified; E87.1 Hypo-osmolality and hyponatremia; N13.8 Other obstructive and reflux uropathy; T39.395A Adverse effect of other nonsteroidal anti-inflammatory drugs [NSAID], initial encounter; N40.1 Benign prostatic hyperplasia with lower urinary tract symptoms; N41.9 Inflammatory disease of prostate, unspecified; B95.2 Enterococcus as the cause of diseases classified elsewhere; I12.9 Hypertensive chronic kidney disease with stage 1 through stage 4 chronic kidney disease, or unspecified chronic kidney disease; N18.2 Chronic kidney disease, stage 2 (mild); T78.3XXA Angioneurotic edema, initial encounter; T36.1X5A Adverse effect of cephalosporins and other beta-lactam antibiotics, initial encounter
CPT/HCPCS: 36415; 51701; 71010; 80048; 80053; 80202; 81003; 81015; 83605; 85007; 85025; 85027; 87040; 87077; 87086; 87186; 90471; 90682; 93005; 94640; 96360; 96361; 96365; 96367; 96374; 96375; G0008; J0696; J1200; J1580; J1644; J2920; J2930; J3370; J3490; J7050; J7611; Q2036; S0028

== ENCOUNTER 2021-09-01 06:12 | Inpatient (IN) | payer MEDICARE ==
[2021-09-01] MEDS ORDERED: Acetaminophen 500 MG TAB ONE (07:08)
[2021-09-01 07:45] LABS: Bilirubin Negative (Negative); Blood, Urine 3+ (Negative); Clarity Clear (Clear); Glucose, Urine (Dipstick) Normal (Negative); Ketone, Urine Negative (Negative); Leukocyte 250 Leu/uL (Negative); Nitrite Negative (Negative); Protein, Urine (Dipstick) 30 mg/dL (Neg-Trace); Specific Gravity, Urine 1.009 (1.002-1.036); Squamous Epithelial 0-3 HPF (0-3); Urobilinogen Normal mg/dL (Less than 2)
[2021-09-01 07:51] LABS: Hemoglobin 13.4 g/dL (14.0-18.0); Mean Corpuscular HGB CONC 32.6 g/dL (32.0-36.0); Mean Corpuscular Hemoglobin 27.7 pg (27.0-31.0); Mean Corpuscular Volume 85.2 fL (78.0-98.0); Mean Platelet Volume 6.6 fL (7.4-10.4); Platelet Count 229 thou/uL (130-400); RBC Distribution Width 13.1 % (11.5-14.5); Red Blood Cell (RBC) Count 4.82 mill/uL (4.70-6.10); White Blood Cell (WBC) Count 4.2 thou/uL (4.8-10.8)
[2021-09-01 07:57] LABS: ALT (SGPT) 24 U/L (8-55); AST (SGOT) 27 U/L (5-34); Albumin 3.4 g/dL (3.4-4.8); Alkaline Phosphatase 65 U/L (40-110); Anion Gap 15 mmol/L (10-20); BUN (Urea Nitrogen) 39 mg/dL (8.4-25.7); Bilirubin, Total 0.4 mg/dL (0.2-1.2); Calc. Creatinine Clearance 0 mL/min (70-130); Carbon Dioxide 22 mmol/L (23-31); Chloride 104 mmol/L (98-107); Globulin 4.1 g/dL (2.4-3.5); Glucose 99 mg/dL (83-110); Potassium 4.1 mmol/L (3.5-5.1); Protein, Total 7.5 g/dL (5.8-8.1); Sodium 137 mmol/L (136-145)
[2021-09-01 08:04] LABS: Band 7 % (5-11); Lymphocytes 14 % (21-51); MDiff Complete? YES; Monocytes 7 % (0-10); Neutrophil 62 % (42-75); RBC Morphology Normal; Reactive Lymphocytes 10 % (0-10)
[2021-09-01 08:18] LABS: RBC/HPF 21-50 HPF (0-3)
[2021-09-01 08:19] LABS: Bacteria/HPF Rare-Few HPF (None Seen)
[2021-09-01] MEDS ORDERED: Morphine 4 MG/ML VIAL ONE (08:22)
[2021-09-01] MEDS ORDERED: Ondansetron PF 4 MG/2 ML Vial ONE (08:22)
[2021-09-01] MEDS ORDERED: Senokot S 8.6-50 MG TAB PO PRN (10:23)
[2021-09-01] MEDS ORDERED: Ondansetron ODT 4 MG TAB PO PRN (10:23)
[2021-09-01] MEDS ORDERED: Vancomycin 1 GM in Premix Bag 1 BAG IVPB SCH (10:30)
[2021-09-01] MEDS ORDERED: Meropenem 1 GM in Sodium Chloride 0.9% 100 ML IVPB SCH (10:30)
[2021-09-01] MEDS ORDERED: Sodium Chloride 0.9% 1,000 ML IV SCH (10:30)
[2021-09-01 11:53] VITALS: BMI 24.3
[2021-09-01] MEDS ORDERED: FLU VACC QS2021-22(65YR UP)/PF 240 MCG/0.7 ML SYRINGE IM ONE (12:15)
[2021-09-01] MEDS ORDERED: Vancomycin 1.5 GRAM/300 ML BAG 1.5 GM in Premix Bag 1 BAG IVPB SCH (13:00)
[2021-09-01] MEDS: Heparin 5,000 UNITS/ML VIAL SC SCH ×2 (14:52→20:12)
[2021-09-01 15:26] LABS: SARS-CoV-2 PCR by NAA Not Detected (NotDetected)
[2021-09-01] MEDS: Aztreonam 2 GM in Sodium Chloride 0.9% 100 ML IVPB SCH (17:34)
[2021-09-01] MEDS: Famotidine 20 MG TAB PO SCH (20:12)
[2021-09-02] MEDS ORDERED: Acetaminophen 325 MG TAB PO PRN (01:23)
[2021-09-02] MEDS: Aztreonam 2 GM in Sodium Chloride 0.9% 100 ML IVPB SCH ×2 (05:19→17:33)
[2021-09-02 06:49] LABS: Hemoglobin 11.7 g/dL (14.0-18.0); Mean Corpuscular Hemoglobin 28.4 pg (27.0-31.0); Mean Corpuscular Volume 86.1 fL (78.0-98.0); Mean Platelet Volume 6.8 fL (7.4-10.4); Platelet Count 218 thou/uL (130-400); RBC Distribution Width 13.3 % (11.5-14.5); Red Blood Cell (RBC) Count 4.13 mill/uL (4.70-6.10); White Blood Cell (WBC) Count 3.5 thou/uL (4.8-10.8)
[2021-09-02 07:10] LABS: Anion Gap 12 mmol/L (10-20); BUN (Urea Nitrogen) 36 mg/dL (8.4-25.7); Calc. Creatinine Clearance 26 mL/min (70-130); Calcium 8.4 mg/dL (7.8-10.44); Carbon Dioxide 20 mmol/L (23-31); Chloride 108 mmol/L (98-107); Glucose 93 mg/dL (83-110); Potassium 4.4 mmol/L (3.5-5.1); Sodium 136 mmol/L (136-145)
[2021-09-02 08:01] LABS: Band 1 % (5-11); Lymphocytes 28 % (21-51); MDiff Complete? YES; Monocytes 16 % (0-10); Neutrophil 45 % (42-75); Platelet Morphology Comment Appears Adequate; Polychromasia SLIGHT = 2-3 cells (100X) (0-2/hpf); Reactive Lymphocytes 10 % (0-10); Vacuoles SLIGHT
[2021-09-02] MEDS: Finasteride 5 MG TAB PO SCH (08:21)
[2021-09-02] MEDS: Famotidine 20 MG TAB PO SCH (08:22)
[2021-09-02] MEDS: Heparin 5,000 UNITS/ML VIAL SC SCH ×3 (08:22→20:08)
[2021-09-02] MEDS: Tamsulosin HCl 0.4 MG CAP PO SCH (08:22)
[2021-09-02] MEDS ORDERED: Vancomycin 1 GM in Premix Bag 1 BAG IVPB SCH (10:45)
[2021-09-02 14:40] LABS: Vancomycin, Random 11.5 ug/mL (See Comment)
[2021-09-02] MEDS ORDERED: Vancomycin HCl 750 MG in Sodium Chloride 0.9% 250 ML 250 ML IVPB SCH (15:00)
[2021-09-02] MEDS ORDERED: Amlodipine 5 MG TAB PO SCH (15:30)
[2021-09-02] MEDS: Sodium Chloride 0.9% 1,000 ML IV SCH (15:44)
[2021-09-03] MEDS: Sodium Chloride 0.9% 1,000 ML IV SCH ×2 (00:38→04:54)
[2021-09-03] MEDS: Aztreonam 2 GM in Sodium Chloride 0.9% 100 ML IVPB SCH (04:54)
[2021-09-03 07:20] LABS: Hemoglobin 11.4 g/dL (14.0-18.0); Mean Corpuscular HGB CONC 31.2 g/dL (32.0-36.0); Mean Corpuscular Volume 86.5 fL (78.0-98.0); Mean Platelet Volume 6.4 fL (7.4-10.4); Platelet Count 237 thou/uL (130-400); RBC Distribution Width 13.1 % (11.5-14.5); Red Blood Cell (RBC) Count 4.24 mill/uL (4.70-6.10); White Blood Cell (WBC) Count 3.2 thou/uL (4.8-10.8)
[2021-09-03 07:31] LABS: Anion Gap 13 mmol/L (10-20); BUN (Urea Nitrogen) 31 mg/dL (8.4-25.7); Calc. Creatinine Clearance 32 mL/min (70-130); Calcium 7.8 mg/dL (7.8-10.44); Carbon Dioxide 21 mmol/L (23-31); Chloride 106 mmol/L (98-107); Glucose 83 mg/dL (83-110); Potassium 4.1 mmol/L (3.5-5.1); Sodium 136 mmol/L (136-145)
[2021-09-03] MEDS: Finasteride 5 MG TAB PO SCH (08:13)
[2021-09-03] MEDS: Tamsulosin HCl 0.4 MG CAP PO SCH (08:14)
[2021-09-03] MEDS: Heparin 5,000 UNITS/ML VIAL SC SCH ×2 (08:18→15:14)
[2021-09-03] MEDS ORDERED: Famotidine 20 MG TAB PO SCH (09:00)
[2021-09-03] MEDS ORDERED: Amlodipine 5 MG TAB PO SCH (09:00)
[2021-09-03] MEDS ORDERED: Aspirin 81 mg Enteric Coated Tablet PO SCH (09:00)
[2021-09-03 11:06] LABS: Band 15 % (5-11); Eosinophils 2 % (0-10); Lymphocytes 26 % (21-51); MDiff Complete? YES; Monocytes 12 % (0-10); Neutrophil 42 % (42-75); RBC Morphology Normal; Reactive Lymphocytes 3 % (0-10)
[2021-09-03 18:37] VITALS: TEMP 98
[2021-09-03 18:46] VITALS: BP 163/92
[2021-09-03] MEDS ORDERED: Cipro 250 MG TAB PO SCH (20:00)
== END 2021-09-03 18:54 | disposition home or self-care (01) | DRG 690 ==
LOC: ERS 06:12 → T4-A 09:55 → OBSVTOIN 09-02 15:09
PROVIDERS: ADMIT Internal Medicine; ATTEND Internal Medicine
DX: N13.6 Pyonephrosis (principal); I31.3 Pericardial effusion (noninflammatory); Z20.822 Contact with and (suspected) exposure to COVID-19; N13.8 Other obstructive and reflux uropathy; N17.9 Acute kidney failure, unspecified; N18.9 Chronic kidney disease, unspecified; E78.5 Hyperlipidemia, unspecified; N40.1 Benign prostatic hyperplasia with lower urinary tract symptoms; I12.9 Hypertensive chronic kidney disease with stage 1 through stage 4 chronic kidney disease, or unspecified chronic kidney disease; D63.1 Anemia in chronic kidney disease; Z86.11 Personal history of tuberculosis; Z88.1 Allergy status to other antibiotic agents; Z79.82 Long term (current) use of aspirin; Z79.899 Other long term (current) drug therapy; Z82.49 Family history of ischemic heart disease and other diseases of the circulatory system
CPT/HCPCS: 36415; 74176; 76770; 80048; 80053; 80202; 81003; 81015; 83605; 85025; 87040; 87086; 90471; 90662; G0008; J1580; J1644; J2270; J2405; J3370; J3490; J7050; U0003; U0005

== ENCOUNTER 2021-09-04 00:58 | Emergency (ER) | payer MEDICARE | END 2021-09-04 04:25 | disposition home or self-care (01) | LOC: ERS 00:58 | DX: T83.011A Breakdown (mechanical) of indwelling urethral catheter, initial encounter (principal) | CPT/HCPCS: 99283 ==

== ENCOUNTER 2021-12-31 18:51 | Emergency (ER) | payer MEDICARE | END 2021-12-31 20:40 | disposition home or self-care (01) | LOC: ERS 18:51 | DX: T83.091A Other mechanical complication of indwelling urethral catheter, initial encounter (principal); G47.00 Insomnia, unspecified; Z87.19 Personal history of other diseases of the digestive system | CPT/HCPCS: 99283 ==

== ENCOUNTER 2022-01-11 10:48 | Outpatient (CLI) | payer MEDICARE ==
[2022-01-11 23:06] LABS: SARS-CoV-2 PCR by NAA Not Detected (NotDetected)
== END 2022-01-11 10:49 | disposition home or self-care (01) ==
LOC: LABBT 10:48
PROVIDERS: ATTEND Urology
DX: Z20.822 Contact with and (suspected) exposure to COVID-19 (principal); Z12.5 Encounter for screening for malignant neoplasm of prostate; N40.0 Benign prostatic hyperplasia without lower urinary tract symptoms; Z79.899 Other long term (current) drug therapy
CPT/HCPCS: 80053; 85025; G0103; U0003; U0005; 36415

== ENCOUNTER 2022-01-15 08:17 | Day surgery (SDC) | payer MEDICARE ==
[2022-01-15 08:35] LABS: INR-International Normal Ratio 1.1
[2022-01-15] MEDS ORDERED: Fentanyl 100 MCG/2 ML VIAL ONE (09:59)
[2022-01-15] MEDS ORDERED: Sodium Bicarbonate 2.5 MEQ/5 ML VIAL ONE (09:59)
[2022-01-15] MEDS ORDERED: Midazolam HCl 2 mg/2 ml Vial ONE (09:59)
[2022-01-15 10:02] VITALS: BP 133/72; TEMP 98; BMI 24.6
[2022-01-15] MEDS ORDERED: Acetaminophen 500 MG TAB ONE (12:11)
== END 2022-01-15 14:30 | disposition home or self-care (01) ==
LOC: CT 08:17
PROVIDERS: ATTEND Urology
PROC: 0T9B30Z Drainage of Bladder with Drainage Device, Percutaneous Approach (ICD-10-PCS; principal; 2022-01-15)
DX: N40.1 Benign prostatic hyperplasia with lower urinary tract symptoms (principal); R33.8 Other retention of urine; Z79.899 Other long term (current) drug therapy; Z88.1 Allergy status to other antibiotic agents
CPT/HCPCS: 51102; 77002; 85610; 85730; C2627; J1956; J2250; J3010

== ENCOUNTER 2022-01-19 11:23 | Outpatient (CLI) | payer MEDICARE | END 2022-01-19 11:24 | disposition home or self-care (01) | LOC: RAD 11:23 | PROVIDERS: ATTEND Internal Medicine Pulmonary Disease | DX: R06.00 Dyspnea, unspecified (principal); R91.8 Other nonspecific abnormal finding of lung field | CPT/HCPCS: 71046 ==

== ENCOUNTER 2022-01-20 15:21 | Inpatient (IN) | payer MEDICARE, OTHER ==
[2022-01-20] MEDS ORDERED: Ondansetron PF 4 MG/2 ML Vial ONE (15:56)
[2022-01-20 16:12] LABS: Hemoglobin 10.7 g/dL (14.0-18.0); Mean Corpuscular HGB CONC 31.6 g/dL (32.0-36.0); Mean Corpuscular Hemoglobin 29.5 pg (27.0-31.0); Mean Corpuscular Volume 93.2 fL (78.0-98.0); Mean Platelet Volume 9.1 fL (7.4-10.4); Platelet Count 227 thou/uL (130-400); RBC Distribution Width 15.8 % (11.5-14.5); Red Blood Cell (RBC) Count 3.63 mill/uL (4.70-6.10)
[2022-01-20 16:32] LABS: ALT (SGPT) 20 U/L (8-55); AST (SGOT) 42 U/L (5-34); Albumin 3.1 g/dL (3.4-4.8); Alkaline Phosphatase 81 U/L (40-110); Anion Gap 17 mmol/L (10-20); BUN (Urea Nitrogen) 53 mg/dL (8.4-25.7); Bilirubin, Total 1.2 mg/dL (0.2-1.2); Calc. Creatinine Clearance 0 mL/min (70-130); Carbon Dioxide 27 mmol/L (23-31); Chloride 99 mmol/L (98-107); Globulin 4.2 g/dL (2.4-3.5); Glucose 141 mg/dL (83-110); Lipase 62 U/L (8-78); Protein, Total 7.3 g/dL (5.8-8.1); Sodium 139 mmol/L (136-145)
[2022-01-20 16:35] LABS: Band 5 % (5-11); Eosinophils 1 % (0-10); Hypochromia SLIGHT = 6-15 cells (100X) (0-5/hpf); Lymphocytes 8 % (21-51); MDiff Complete? YES; Monocytes 5 % (0-10); Neutrophil 75 % (42-75); Ovalocytes SLIGHT = 2-5 cells (100X) (0-1/hpf); Platelet Morphology Comment Appears Adequate; Polychromasia SLIGHT = 2-3 cells (100X) (0-2/hpf); Reactive Lymphocytes 5 % (0-10)
[2022-01-20 17:38] LABS: Bilirubin Negative (Negative); Blood, Urine Negative (Negative); Clarity Clear (Clear); Glucose, Urine (Dipstick) Normal (Negative); Ketone, Urine Negative (Negative); Leukocyte Negative Leu/uL (Negative); Nitrite 2+ (Negative); Protein, Urine (Dipstick) Negative (Neg-Trace); RBC/HPF None Seen HPF (0-3); Squamous Epithelial None Seen HPF (0-3); Urobilinogen Normal mg/dL (Less than 2); WBC/HPF 0-3 HPF (0-3); pH, Urine 6.5 (5.0-9.0)
[2022-01-20 17:47] LABS: Bacteria/HPF 2+ HPF (None Seen)
[2022-01-20] MEDS ORDERED: Ondansetron PF 4 MG/2 ML Vial IVP PRN (18:52)
[2022-01-20] MEDS ORDERED: Bisacodyl 10 MG SUPP PR PRN (18:52)
[2022-01-20] MEDS ORDERED: hydrALAZINE 20 MG/ML VIAL SLOW IVP PRN (18:58)
[2022-01-20] MEDS ORDERED: Furosemide 40 MG/4 ML VIAL SLOW IVP SCH (19:15)
[2022-01-20 20:04] VITALS: BMI 24.3
[2022-01-20] MEDS: Sodium Chloride 0.9% 1,000 ML IV SCH (20:11)
[2022-01-20] MEDS: Heparin 5,000 UNITS/ML VIAL SC SCH (20:12)
[2022-01-20] MEDS ORDERED: Pantoprazole 40 MG VIAL IVP SCH (21:00)
[2022-01-21] MEDS: Furosemide 40 MG/4 ML VIAL SLOW IVP SCH ×2 (05:02→17:55)
[2022-01-21] MEDS ORDERED: Acetaminophen 650 MG Suppository PR PRN (05:27)
[2022-01-21 06:06] LABS: ALT (SGPT) 13 U/L (8-55); AST (SGOT) 27 U/L (5-34); Albumin 2.5 g/dL (3.4-4.8); Alkaline Phosphatase 67 U/L (40-110); Anion Gap 14 mmol/L (10-20); BUN (Urea Nitrogen) 50 mg/dL (8.4-25.7); Bilirubin, Total 0.9 mg/dL (0.2-1.2); Calc. Creatinine Clearance 31 mL/min (70-130); Calcium 8.6 mg/dL (7.8-10.44); Carbon Dioxide 27 mmol/L (23-31); Chloride 104 mmol/L (98-107); Globulin 3.9 g/dL (2.4-3.5); Glucose 99 mg/dL (83-110); Potassium 3.8 mmol/L (3.5-5.1); Protein, Total 6.4 g/dL (5.8-8.1); Sodium 141 mmol/L (136-145)
[2022-01-21] MEDS: Morphine 2 MG/ML VIAL SLOW IVP PRN (06:12)
[2022-01-21 06:50] LABS: Band 21 % (5-11); Hemoglobin 9.3 g/dL (14.0-18.0); Lymphocytes 8 % (21-51); MDiff Complete? YES; Mean Corpuscular HGB CONC 32.4 g/dL (32.0-36.0); Mean Corpuscular Hemoglobin 30.5 pg (27.0-31.0); Mean Corpuscular Volume 94.1 fL (78.0-98.0); Mean Platelet Volume 8.8 fL (7.4-10.4); Monocytes 1 % (0-10); Neutrophil 70 % (42-75); Platelet Count 184 thou/uL (130-400); RBC Distribution Width 15.5 % (11.5-14.5); Red Blood Cell (RBC) Count 3.06 mill/uL (4.70-6.10); White Blood Cell (WBC) Count 10.7 thou/uL (4.8-10.8)
[2022-01-21 08:33] LABS: SARS-CoV-2 PCR by NAA Not Detected (NotDetected)
[2022-01-21] MEDS: Pantoprazole 40 MG VIAL IVP SCH (09:02)
[2022-01-21] MEDS: Sodium Chloride 0.9% 1,000 ML IV SCH ×2 (09:02→20:08)
[2022-01-21] MEDS: Heparin 5,000 UNITS/ML VIAL SC SCH ×2 (09:02→20:07)
[2022-01-22] MEDS: Furosemide 40 MG/4 ML VIAL SLOW IVP SCH ×2 (05:05→18:27)
[2022-01-22] MEDS: Heparin 5,000 UNITS/ML VIAL SC SCH ×2 (08:28→21:06)
[2022-01-22] MEDS: Pantoprazole 40 MG VIAL IVP SCH (08:28)
[2022-01-22] MEDS ORDERED: MD-Gastroview 120 ML BOT ONE (10:13)
[2022-01-22] MEDS: Sodium Chloride 0.9% 1,000 ML IV SCH (11:13)
[2022-01-23] MEDS: Sodium Chloride 0.9% 1,000 ML IV SCH ×2 (03:06→17:29)
[2022-01-23] MEDS: Furosemide 40 MG/4 ML VIAL SLOW IVP SCH ×2 (05:46→18:27)
[2022-01-23] MEDS: Heparin 5,000 UNITS/ML VIAL SC SCH ×2 (10:15→21:23)
[2022-01-23] MEDS: Pantoprazole 40 MG VIAL IVP SCH (10:15)
[2022-01-24] MEDS: Furosemide 40 MG/4 ML VIAL SLOW IVP SCH ×2 (06:04→18:06)
[2022-01-24] MEDS: Sodium Chloride 0.9% 1,000 ML IV SCH ×3 (06:07→20:36)
[2022-01-24] MEDS ORDERED: Acetaminophen 650 MG/20.3 ML UDCUP PO PRN (08:35)
[2022-01-24] MEDS: Heparin 5,000 UNITS/ML VIAL SC SCH ×2 (09:14→20:32)
[2022-01-24] MEDS: Pantoprazole 40 MG VIAL IVP SCH (09:15)
[2022-01-24 09:44] LABS: #Basophils 0.1 thou/uL (0.0-0.2); #Eosinphils 0.2 thou/uL (0.0-0.7); #Lymphocytes 0.6 thou/uL (1.20-3.40); #Monocytes 0.4 thou/uL (0.11-0.59); #Neutrophils 7.1 thou/uL (1.40-6.50); %Basophils 0.9 % (0.0-1.0); %Lymphocytes 7.1 % (21.0-51.0); %Monocytes 4.5 % (0.0-10.0); %Neutrophils 85.4 % (42.0-75.0); Mean Corpuscular HGB CONC 30.5 g/dL (32.0-36.0); Mean Corpuscular Hemoglobin 28.9 pg (27.0-31.0); Mean Corpuscular Volume 94.8 fL (78.0-98.0); Mean Platelet Volume 8.6 fL (7.4-10.4); Platelet Count 234 thou/uL (130-400); RBC Distribution Width 15.6 % (11.5-14.5); Red Blood Cell (RBC) Count 3.47 mill/uL (4.70-6.10); White Blood Cell (WBC) Count 8.3 thou/uL (4.8-10.8)
[2022-01-24 09:57] LABS: Anion Gap 16 mmol/L (10-20); BUN (Urea Nitrogen) 29 mg/dL (8.4-25.7); Calc. Creatinine Clearance 39 mL/min (70-130); Calcium 8.4 mg/dL (7.8-10.44); Carbon Dioxide 26 mmol/L (23-31); Chloride 106 mmol/L (98-107); Glucose 143 mg/dL (83-110); Potassium 3.2 mmol/L (3.5-5.1); Sodium 145 mmol/L (136-145)
[2022-01-24] MEDS: Morphine 2 MG/ML VIAL SLOW IVP PRN (20:32)
[2022-01-25] MEDS: Furosemide 40 MG/4 ML VIAL SLOW IVP SCH ×2 (05:09→18:45)
[2022-01-25 06:37] LABS: Hemoglobin 9.1 g/dL (14.0-18.0); Mean Corpuscular HGB CONC 30.7 g/dL (32.0-36.0); Mean Corpuscular Hemoglobin 28.6 pg (27.0-31.0); Mean Corpuscular Volume 93.1 fL (78.0-98.0); Mean Platelet Volume 8.1 fL (7.4-10.4); Platelet Count 243 thou/uL (130-400); RBC Distribution Width 15.4 % (11.5-14.5); Red Blood Cell (RBC) Count 3.17 mill/uL (4.70-6.10); White Blood Cell (WBC) Count 10.4 thou/uL (4.8-10.8)
[2022-01-25 06:43] LABS: Bacteria/HPF 2+ HPF (None Seen); Bilirubin Negative (Negative); Blood, Urine 1+ (Negative); Clarity Clear (Clear); Glucose, Urine (Dipstick) Normal (Negative); Ketone, Urine Negative (Negative); Leukocyte 500 Leu/uL (Negative); Nitrite Negative (Negative); Protein, Urine (Dipstick) 10 mg/dL (Neg-Trace); Squamous Epithelial None Seen HPF (0-3); Urobilinogen Normal mg/dL (Less than 2); WBC/HPF 21-50 HPF (0-3); pH, Urine 5.5 (5.0-9.0)
[2022-01-25 06:54] LABS: Anion Gap 12 mmol/L (10-20); BUN (Urea Nitrogen) 23 mg/dL (8.4-25.7); Calc. Creatinine Clearance 44 mL/min (70-130); Calcium 7.9 mg/dL (7.8-10.44); Carbon Dioxide 29 mmol/L (23-31); Chloride 104 mmol/L (98-107); Glucose 103 mg/dL (83-110); Sodium 142 mmol/L (136-145)
[2022-01-25 07:02] LABS: Potassium 2.7 mmol/L (3.5-5.1)
[2022-01-25 07:33] LABS: Urine Culture Reflex Yes Yes
[2022-01-25 08:06] LABS: Band 5 % (5-11); Eosinophils 1 % (0-10); Hypochromia SLIGHT = 6-15 cells (100X) (0-5/hpf); Lymphocytes 8 % (21-51); MDiff Complete? YES; Monocytes 5 % (0-10); Neutrophil 80 % (42-75); Platelet Morphology Comment Appears Adequate; Polychromasia SLIGHT = 2-3 cells (100X) (0-2/hpf)
[2022-01-25] MEDS: Pantoprazole 40 MG VIAL IVP SCH (08:12)
[2022-01-25] MEDS: Heparin 5,000 UNITS/ML VIAL SC SCH ×2 (08:12→21:24)
[2022-01-25] MEDS: Potassium Chloride 20 MEQ in Premix Bag 1 BAG IVPB SCH ×3 (08:12→13:15)
[2022-01-25] MEDS ORDERED: Ketamine 50 MG/ML (10ML VIAL) ONE (12:41)
[2022-01-25] MEDS: Sodium Chloride 0.9% 1,000 ML IV SCH (16:15)
[2022-01-26 06:13] LABS: Band 5 % (5-11); Hypochromia SLIGHT = 6-15 cells (100X) (0-5/hpf); Lymphocytes 3 % (21-51); MDiff Complete? YES; Mean Corpuscular HGB CONC 32.3 g/dL (32.0-36.0); Mean Corpuscular Hemoglobin 29.9 pg (27.0-31.0); Mean Corpuscular Volume 92.5 fL (78.0-98.0); Mean Platelet Volume 8.1 fL (7.4-10.4); Metamyelocyte 1 % (0-0); Monocytes 19 % (0-10); Neutrophil 72 % (42-75); Platelet Count 259 thou/uL (130-400); Platelet Morphology Comment Appears Adequate; RBC Distribution Width 15.5 % (11.5-14.5); Red Blood Cell (RBC) Count 3.02 mill/uL (4.70-6.10); White Blood Cell (WBC) Count 13.2 thou/uL (4.8-10.8)
[2022-01-26 06:14] LABS: Anion Gap 12 mmol/L (10-20); BUN (Urea Nitrogen) 24 mg/dL (8.4-25.7); Calc. Creatinine Clearance 42 mL/min (70-130); Calcium 8.1 mg/dL (7.8-10.44); Carbon Dioxide 28 mmol/L (23-31); Chloride 103 mmol/L (98-107); Glucose 111 mg/dL (83-110); Potassium 3.1 mmol/L (3.5-5.1); Sodium 140 mmol/L (136-145)
[2022-01-26] MEDS: Furosemide 40 MG/4 ML VIAL SLOW IVP SCH ×2 (06:18→18:34)
[2022-01-26] MEDS ORDERED: Potassium Chloride 20 MEQ TAB PO SCH (08:15)
[2022-01-26] MEDS ORDERED: Metolazone 5 MG TAB PO SCH (09:15)
[2022-01-26] MEDS: Heparin 5,000 UNITS/ML VIAL SC SCH ×2 (09:32→22:21)
[2022-01-26] MEDS: Pantoprazole 40 MG VIAL IVP SCH (09:33)
[2022-01-26] MEDS: Morphine 4 MG/ML VIAL SLOW IVP PRN ×2 (09:34→22:55)
[2022-01-27] MEDS: Furosemide 40 MG/4 ML VIAL SLOW IVP SCH ×2 (05:23→17:19)
[2022-01-27 06:11] LABS: Band 2 % (5-11); Eosinophils 3 % (0-10); Hemoglobin 9.6 g/dL (14.0-18.0); Hypochromia SLIGHT = 6-15 cells (100X) (0-5/hpf); Lymphocytes 16 % (21-51); MDiff Complete? YES; Mean Corpuscular HGB CONC 30.1 g/dL (32.0-36.0); Mean Corpuscular Hemoglobin 28.3 pg (27.0-31.0); Mean Corpuscular Volume 94.1 fL (78.0-98.0); Mean Platelet Volume 8.2 fL (7.4-10.4); Monocytes 18 % (0-10); Neutrophil 61 % (42-75); Platelet Count 330 thou/uL (130-400); Platelet Morphology Comment Appears Adequate; RBC Distribution Width 15.6 % (11.5-14.5); Red Blood Cell (RBC) Count 3.41 mill/uL (4.70-6.10); White Blood Cell (WBC) Count 13.2 thou/uL (4.8-10.8)
[2022-01-27 06:19] LABS: Anion Gap 16 mmol/L (10-20); BUN (Urea Nitrogen) 28 mg/dL (8.4-25.7); Calc. Creatinine Clearance 37 mL/min (70-130); Calcium 8.8 mg/dL (7.8-10.44); Carbon Dioxide 27 mmol/L (23-31); Chloride 98 mmol/L (98-107); Glucose 100 mg/dL (83-110); Potassium 3.5 mmol/L (3.5-5.1); Sodium 137 mmol/L (136-145)
[2022-01-27] MEDS: Heparin 5,000 UNITS/ML VIAL SC SCH (08:15)
[2022-01-27] MEDS: Spironolactone 25 MG TAB PO SCH (08:24)
[2022-01-27] MEDS: Pantoprazole 40 MG VIAL IVP SCH (08:24)
[2022-01-27] MEDS ORDERED: Ketamine 50 MG/ML (10ML VIAL) ONE (09:27)
[2022-01-27] MEDS ORDERED: Glycopyrrolate 0.2 MG/ML 5 ML SYRINGE ONE ×2 (09:27→09:34)
[2022-01-27] MEDS ORDERED: Nitrofurantoin Monohyd/M-Cryst 100 MG CAP PO SCH (10:00)
[2022-01-27 15:31] LABS: SARS-CoV-2 PCR by NAA Not Detected (NotDetected)
[2022-01-27] MEDS: Nitrofurantoin Monohyd/M-Cryst 100 MG CAP PO SCH (21:52)
[2022-01-28] MEDS: Furosemide 40 MG/4 ML VIAL SLOW IVP SCH (06:19)
[2022-01-28] MEDS ORDERED: Magnesium Citrate 300 ML BOT PO SCH (08:30)
[2022-01-28 08:34] VITALS: BP 112/72; TEMP 98.4
[2022-01-28] MEDS: Spironolactone 25 MG TAB PO SCH (09:20)
[2022-01-28] MEDS: Pantoprazole 40 MG VIAL IVP SCH (09:20)
[2022-01-28] MEDS: Nitrofurantoin Monohyd/M-Cryst 100 MG CAP PO SCH (09:20)
== END 2022-01-28 18:24 | disposition home health service (06) | DRG 389 ==
LOC: ERS 15:21 → MSONC 17:55
PROVIDERS: ADMIT Internal Medicine; ATTEND Internal Medicine
PROC: 0D9670Z Drainage of Stomach with Drainage Device, Via Natural or Artificial Opening (ICD-10-PCS; principal; 2022-01-20)
PROC: B24BZZ4 Ultrasonography of Heart with Aorta, Transesophageal (ICD-10-PCS; 2022-01-27)
DX: K56.600 Partial intestinal obstruction, unspecified as to cause (principal); Z20.822 Contact with and (suspected) exposure to COVID-19; N17.9 Acute kidney failure, unspecified; I31.3 Pericardial effusion (noninflammatory); I13.0 Hypertensive heart and chronic kidney disease with heart failure and stage 1 through stage 4 chronic kidney disease, or unspecified chronic kidney disease; I50.32 Chronic diastolic (congestive) heart failure; N13.8 Other obstructive and reflux uropathy; N39.0 Urinary tract infection, site not specified; Z16.11 Resistance to penicillins; Z16.23 Resistance to quinolones and fluoroquinolones; Q21.0 Ventricular septal defect; B96.20 Unspecified Escherichia coli [E. coli] as the cause of diseases classified elsewhere; N40.1 Benign prostatic hyperplasia with lower urinary tract symptoms; N18.30 Chronic kidney disease, stage 3 unspecified; E88.09 Other disorders of plasma-protein metabolism, not elsewhere classified; G47.00 Insomnia, unspecified; I08.3 Combined rheumatic disorders of mitral, aortic and tricuspid valves; I70.0 Atherosclerosis of aorta; E87.6 Hypokalemia; Z87.440 Personal history of urinary (tract) infections; Z86.11 Personal history of tuberculosis; Z98.890 Other specified postprocedural states; Z87.891 Personal history of nicotine dependence; Z80.9 Family history of malignant neoplasm, unspecified; Z83.6 Family history of other diseases of the respiratory system; Z88.1 Allergy status to other antibiotic agents; Z79.899 Other long term (current) drug therapy
CPT/HCPCS: 36415; 74176; 74250; 80048; 80053; 81001; 81003; 81015; 83605; 83690; 83880; 84484; 85025; 87077; 87086; 87186; 93005; 93312; 96361; 96374; C9113; J0744; J1644; J1940; J2270; J2405; J3480; J7050; Q9963; U0003; U0005

== ENCOUNTER 2022-08-22 17:51 | Inpatient (IN) | payer OTHER ==
[2022-08-22 19:21] LABS: Bacteria/HPF 4+ HPF (None Seen); Bilirubin Negative (Negative); Blood, Urine 2+ (Negative); Clarity Turbid (Clear); Glucose, Urine (Dipstick) Normal (Negative); Ketone, Urine Negative (Negative); Leukocyte 500 Leu/uL (Negative); Nitrite Negative (Negative); Protein, Urine (Dipstick) 30 mg/dL (Neg-Trace); RBC/HPF 21-50 HPF (0-3); Specific Gravity, Urine 1.009 (1.002-1.036); Squamous Epithelial None Seen HPF (0-3); Urobilinogen Normal mg/dL (Less than 2); WBC/HPF 21-50 HPF (0-3); pH, Urine 5.5 (5.0-9.0)
[2022-08-22 19:35] LABS: #Lymphocytes 0.6 thou/uL (1.20-3.40); #Monocytes 0.6 thou/uL (0.11-0.59); %Basophils 0.6 % (0.0-1.0); %Eosinophils 0.5 % (0.0-10.0); %Lymphocytes 9.3 % (21.0-51.0); %Monocytes 9.5 % (0.0-10.0); %Neutrophils 80.1 % (42.0-75.0); Hemoglobin 10.2 g/dL (14.0-18.0); Mean Corpuscular HGB CONC 29.6 g/dL (32.0-36.0); Mean Corpuscular Hemoglobin 26.4 pg (27.0-31.0); Mean Platelet Volume 7.3 fL (7.4-10.4); Platelet Count 251 10x3/uL (130-400); RBC Distribution Width 17.6 % (11.5-14.5); Red Blood Cell (RBC) Count 3.88 mill/uL (4.70-6.10); White Blood Cell (WBC) Count 6.3 10x3/uL (4.8-10.8)
[2022-08-22 19:42] LABS: INR-International Normal Ratio 1.1; PTT 34.3 sec (22.9-36.1); Prothrombin Time 14.9 sec (12.0-14.7)
[2022-08-22 19:54] LABS: ALT (SGPT) 27 U/L (8-55); AST (SGOT) 34 U/L (5-34); Albumin 2.9 g/dL (3.4-4.8); Alkaline Phosphatase 59 U/L (40-110); Anion Gap 11 mmol/L (10-20); BUN (Urea Nitrogen) 38 mg/dL (8.4-25.7); Bilirubin, Total 0.4 mg/dL (0.2-1.2); Calc. Creatinine Clearance 0 mL/min (70-130); Calcium 8.5 mg/dL (7.8-10.44); Carbon Dioxide 35 mmol/L (23-31); Chloride 98 mmol/L (98-107); Estimated GFR 37; Globulin 4.3 g/dL (2.4-3.5); Glucose 154 mg/dL (83-110); Potassium 4.1 mmol/L (3.5-5.1); Protein, Total 7.2 g/dL (5.8-8.1); Sodium 140 mmol/L (136-145)
[2022-08-22] MEDS ORDERED: Furosemide 40 MG/4 ML VIAL ONE (21:10)
[2022-08-22] MEDS ORDERED: Atropine Sulfate 1 mg/10 ml Syringe ONE (21:16)
[2022-08-22] MEDS ORDERED: Rocuronium Bromide 10 MG/ML (10ML VIAL) ONE (21:16)
[2022-08-22] MEDS ORDERED: Piperacillin/Tazobactam 4.5 GM VIAL ONE (21:49)
[2022-08-22] MEDS ORDERED: Aspirin 300 MG Suppository ONE (21:51)
[2022-08-22] MEDS ORDERED: Ondansetron PF 4 MG/2 ML Vial IVP PRN (22:27)
[2022-08-22] MEDS ORDERED: Labetalol HCl 100 MG/20 ML VIAL SLOW IVP PRN (22:29)
[2022-08-22] MEDS ORDERED: hydrALAZINE 20 MG/ML VIAL SLOW IVP PRN (22:29)
[2022-08-22 22:46] LABS: Actual Bicarbonate (HCO3a) 37.6 mEq/L (22-28); Analyzer IN Cardio ER; Base Excess (BEa) 7.7 mEq/L (-2.0 to +3.0); Carboxyhemoglobin (COHb) 0.7 gm% (0.0-3.0); Hemoglobin (Hb) 10.6 g/dL (14.0-18.0); O2 Tension (PaO2), arterial 108.7 mmHg (> 60.0); Potassium - ABG Lab 3.94 mmol/L (3.70-5.30); pH, Arterial 7.24 (7.35-7.45)
[2022-08-22] MEDS ORDERED: NOREPINEPHRINE 8 MG/250 ML-D5W 250 ML ONE (23:05)
[2022-08-22] MEDS ORDERED: Fentanyl CADD 100 ML IV SCH (23:30)
[2022-08-22 23:32] LABS: Amphetamine Not Detected (NotDetected); Barbiturates Screen Not Detected (NotDetected); Benzodiazepine Screen Not Detected (NotDetected); Cocaine Metabolite Screen Not Detected (NotDetected); Methadone Not Detected (NotDetected); Methamphetamine Not Detected (NotDetected); Opiate Screen Not Detected (NotDetected); Oxycodone Screen Not Detected (NotDetected); Phencyclidine (PCP) Not Detected (NotDetected); THC/Cannabinoid Screen Not Detected (NotDetected); Tricyclic Screen Not Detected (NotDetected)
[2022-08-22 23:43] LABS: Legionella Urinary Ag Negative (Negative); Strep pneumo Urine Ag NEGATIVE (NEGATIVE)
[2022-08-22 23:55] LABS: Actual Bicarbonate (HCO3a) 30.9 mEq/L (22-28); Analyzer IN Cardio ER; Base Excess (BEa) 9.1 mEq/L (-2.0 to +3.0); CO2 Tension 31.9 mmHg (35.0-45.0); Calcium, Ionized (arterial) 1.11 mmol/L (1.12-1.30); Carboxyhemoglobin (COHb) 0.3 gm% (0.0-3.0); Hemoglobin (Hb) 10.4 g/dL (14.0-18.0); O2 Tension (PaO2), arterial 227.7 mmHg (> 60.0); Potassium - ABG Lab 3.88 mmol/L (3.70-5.30)
[2022-08-22 23:59] LABS: ALV-art Gradient 88.925 mmHg (0-20); Puncture Site RBA
[2022-08-23 00:01] LABS: ALV-art Gradient 6.835 mmHg (0-20); CO2 Tension 90.1 mmHg (35.0-45.0); Puncture Site RBA
[2022-08-23 00:10] LABS: SARS-CoV-2 NAA Rapid Test Not Detected (NotDetected)
[2022-08-23] MEDS ORDERED: Ventilator Sedation Protocol 1 EACH FS ONE (00:18)
[2022-08-23] MEDS ORDERED: Midazolam HCl 2 mg/2 ml Vial SLOW IVP PRN (00:20)
[2022-08-23] MEDS ORDERED: Propofol 1,000 MG/100 ML VIAL IV PRN (00:30)
[2022-08-23] MEDS ORDERED: Propofol BOLUS 1,000 MG/100 ML VIAL IV PRN (00:30)
[2022-08-23] MEDS ORDERED: Fentanyl BOLUS 250 ML IVPB PRN (00:30)
[2022-08-23] MEDS ORDERED: Morphine 4 MG/ML VIAL SLOW IVP PRN (00:30)
[2022-08-23] MEDS ORDERED: DISCONTINUE PREVIOUS NARCOTIC PAIN MEDICATIONS AND BENZODIAZEPINES FS SCH (00:30)
[2022-08-23] MEDS ORDERED: NOREPINEPHRINE 8 MG/250 ML-D5W 250 ML IVPB SCH (00:45)
[2022-08-23] MEDS ORDERED: Azithromycin 500 MG in Sodium Chloride 0.9% 250 ML 250 ML IVPB SCH (01:00)
[2022-08-23 01:23] LABS: Magnesium 2.1 mg/dL (1.6-2.6)
[2022-08-23 01:28] LABS: Troponin I 0.055 ng/mL (< 0.028)
[2022-08-23 01:57] VITALS: BMI 20.6
[2022-08-23] MEDS ORDERED: Dextrose 50% Abboject 50 ML SYRINGE SLOW IVP PRN (02:00)
[2022-08-23] MEDS ORDERED: Dextrose 5% in Water 1,000 ML IV PRN (02:00)
[2022-08-23] MEDS: Piperacillin/Tazobactam 3.375 GM in Sodium Chloride 0.9% 100 ML IVPB SCH ×3 (02:47→17:35)
[2022-08-23 04:58] LABS: #Lymphocytes 0.6 thou/uL (1.20-3.40); #Monocytes 0.6 thou/uL (0.11-0.59); #Neutrophils 6.5 thou/uL (1.40-6.50); %Eosinophils 0.4 % (0.0-10.0); %Lymphocytes 8.2 % (21.0-51.0); %Monocytes 7.8 % (0.0-10.0); %Neutrophils 83.6 % (42.0-75.0); Hemoglobin 9.7 g/dL (14.0-18.0); Mean Corpuscular HGB CONC 29.7 g/dL (32.0-36.0); Mean Corpuscular Hemoglobin 26.2 pg (27.0-31.0); Mean Corpuscular Volume 87.9 fl (78.0-98.0); Mean Platelet Volume 7.2 fL (7.4-10.4); Platelet Count 276 10x3/uL (130-400); RBC Distribution Width 17.4 % (11.5-14.5); Red Blood Cell (RBC) Count 3.72 mill/uL (4.70-6.10); White Blood Cell (WBC) Count 7.7 10x3/uL (4.8-10.8)
[2022-08-23 05:15] LABS: Anion Gap 13 mmol/L (10-20); BUN (Urea Nitrogen) 40 mg/dL (8.4-25.7); Calc. Creatinine Clearance 28 mL/min (70-130); Calcium 8.7 mg/dL (7.8-10.44); Carbon Dioxide 36 mmol/L (23-31); Chloride 97 mmol/L (98-107); Cholesterol 137 mg/dl (< 200 Desired); Estimated GFR 39; Glucose 90 mg/dL (83-110); HDL Cholesterol 45 mg/dL (>60 Neg Risk); LDL Cholesterol, Calculated 77 mg/dL; Potassium 3.6 mmol/L (3.5-5.1); Sodium 142 mmol/L (136-145); Triglycerides 76 mg/dL (Less than 150)
[2022-08-23] MEDS: Furosemide 40 MG/4 ML VIAL SLOW IVP SCH ×2 (05:58→14:30)
[2022-08-23 08:18] LABS: Actual Bicarbonate (HCO3a) 35.8 mEq/L (22-28); Base Excess (BEa) 13.3 mEq/L (-2.0 to +3.0); CO2 Tension 37.4 mmHg (35.0-45.0); Calcium, Ionized (arterial) 1.14 mmol/L (1.12-1.30); Carboxyhemoglobin (COHb) 0.9 gm% (0.0-3.0); Hemoglobin (Hb) 10.9 g/dL (14.0-18.0); O2 Tension (PaO2), arterial 102.5 mmHg (> 60.0); Potassium - ABG Lab 3.41 mmol/L (3.70-5.30)
[2022-08-23 08:20] LABS: Puncture Site RRA
[2022-08-23] MEDS: Potassium Bicarbonate/Cit Ac 20 MEQ TAB PER TUBE SCH (08:46)
[2022-08-23] MEDS: Famotidine 20 MG TAB PER TUBE SCH (08:46)
[2022-08-23] MEDS: Aspirin Chewable 81 MG TAB PER TUBE SCH (08:46)
[2022-08-23] MEDS ORDERED: Heparin 5,000 UNITS/ML VIAL SC SCH (09:00)
[2022-08-23] MEDS ORDERED: Aspirin 81 mg Enteric Coated Tablet PO SCH (09:00)
[2022-08-23] MEDS ORDERED: Sodium Chloride 0.9% 1,000 ML IV SCH (11:00)
[2022-08-23] MEDS ORDERED: Apixaban 5 MG TAB PER TUBE SCH (13:45)
[2022-08-23] MEDS ORDERED: Sodium Chloride 0.9% 500 ML IV SCH (17:00)
[2022-08-23] MEDS: Azithromycin 500 MG in Sodium Chloride 0.9% 250 ML 250 ML IVPB SCH (21:00)
[2022-08-24] MEDS: Piperacillin/Tazobactam 3.375 GM in Sodium Chloride 0.9% 100 ML IVPB SCH ×3 (02:23→18:00)
[2022-08-24 05:07] LABS: #Eosinphils 0.1 thou/uL (0.0-0.7); #Lymphocytes 0.7 thou/uL (1.20-3.40); #Monocytes 0.5 thou/uL (0.11-0.59); #Neutrophils 4.6 thou/uL (1.40-6.50); %Basophils 0.2 % (0.0-1.0); %Eosinophils 0.9 % (0.0-10.0); %Lymphocytes 11.3 % (21.0-51.0); %Monocytes 9.3 % (0.0-10.0); %Neutrophils 78.3 % (42.0-75.0); Hemoglobin 9.2 g/dL (14.0-18.0); Mean Corpuscular HGB CONC 29.8 g/dL (32.0-36.0); Mean Corpuscular Hemoglobin 26.6 pg (27.0-31.0); Mean Corpuscular Volume 89.5 fl (78.0-98.0); Mean Platelet Volume 7.6 fL (7.4-10.4); Platelet Count 214 10x3/uL (130-400); RBC Distribution Width 17.9 % (11.5-14.5); Red Blood Cell (RBC) Count 3.45 mill/uL (4.70-6.10); White Blood Cell (WBC) Count 5.9 10x3/uL (4.8-10.8)
[2022-08-24 05:28] LABS: ALT (SGPT) 17 U/L (8-55); AST (SGOT) 20 U/L (5-34); Albumin 2.4 g/dL (3.4-4.8); Alkaline Phosphatase 42 U/L (40-110); BUN (Urea Nitrogen) 37 mg/dL (8.4-25.7); Bilirubin, Total 0.6 mg/dL (0.2-1.2); Calc. Creatinine Clearance 26 mL/min (70-130); Calcium 8.3 mg/dL (7.8-10.44); Estimated GFR 36; Globulin 3.9 g/dL (2.4-3.5); Glucose 85 mg/dL (83-110); Protein, Total 6.3 g/dL (5.8-8.1)
[2022-08-24 05:39] LABS: Anion Gap 18 mmol/L (10-20); Carbon Dioxide 33 mmol/L (23-31); Chloride 98 mmol/L (98-107); Potassium 3.7 mmol/L (3.5-5.1); Sodium 145 mmol/L (136-145)
[2022-08-24] MEDS: Furosemide 40 MG/4 ML VIAL SLOW IVP SCH ×2 (06:22→13:12)
[2022-08-24] MEDS: Potassium Bicarbonate/Cit Ac 20 MEQ TAB PER TUBE SCH (08:18)
[2022-08-24] MEDS: Famotidine 20 MG TAB PER TUBE SCH (08:18)
[2022-08-24] MEDS: Aspirin Chewable 81 MG TAB PER TUBE SCH (08:18)
[2022-08-24] MEDS: Apixaban 5 MG TAB PER TUBE SCH ×2 (08:44→21:06)
[2022-08-24] MEDS: Azithromycin 500 MG in Sodium Chloride 0.9% 250 ML 250 ML IVPB SCH (21:07)
[2022-08-25] MEDS: Piperacillin/Tazobactam 3.375 GM in Sodium Chloride 0.9% 100 ML IVPB SCH ×3 (01:29→17:59)
[2022-08-25 03:50] LABS: #Basophils 0.1 thou/uL (0.0-0.2); #Eosinphils 0.1 thou/uL (0.0-0.7); #Lymphocytes 0.7 thou/uL (1.20-3.40); #Monocytes 0.5 thou/uL (0.11-0.59); #Neutrophils 4.2 thou/uL (1.40-6.50); %Basophils 0.9 % (0.0-1.0); %Eosinophils 1.5 % (0.0-10.0); %Lymphocytes 12.1 % (21.0-51.0); %Monocytes 9.5 % (0.0-10.0); Hemoglobin 9.8 g/dL (14.0-18.0); Mean Corpuscular HGB CONC 31.4 g/dL (32.0-36.0); Mean Corpuscular Hemoglobin 27.5 pg (27.0-31.0); Mean Corpuscular Volume 87.5 fl (78.0-98.0); Mean Platelet Volume 7.4 fL (7.4-10.4); Platelet Count 203 10x3/uL (130-400); RBC Distribution Width 17.7 % (11.5-14.5); Red Blood Cell (RBC) Count 3.56 mill/uL (4.70-6.10); White Blood Cell (WBC) Count 5.6 10x3/uL (4.8-10.8)
[2022-08-25 04:11] LABS: Anion Gap 13 mmol/L (10-20); BUN (Urea Nitrogen) 39 mg/dL (8.4-25.7); Calc. Creatinine Clearance 23 mL/min (70-130); Calcium 8.6 mg/dL (7.8-10.44); Carbon Dioxide 36 mmol/L (23-31); Chloride 95 mmol/L (98-107); Estimated GFR 30; Glucose 96 mg/dL (83-110); Potassium 3.9 mmol/L (3.5-5.1); Sodium 140 mmol/L (136-145)
[2022-08-25] MEDS: Furosemide 40 MG/4 ML VIAL SLOW IVP SCH ×2 (05:32→14:41)
[2022-08-25] MEDS: Potassium Bicarbonate/Cit Ac 20 MEQ TAB PER TUBE SCH (09:04)
[2022-08-25] MEDS: Famotidine 20 MG TAB PER TUBE SCH (09:04)
[2022-08-25] MEDS: Aspirin Chewable 81 MG TAB PER TUBE SCH (10:59)
[2022-08-25] MEDS: Apixaban 5 MG TAB PER TUBE SCH ×2 (10:59→22:06)
[2022-08-25 11:21] LABS: Bilirubin Unable to Interpret (Negative); Blood, Urine Unable to Interpret (Negative); Clarity Hazy (Clear); Glucose, Urine (Dipstick) Unable to Interpret mg/dL (Negative); Ketone, Urine Unable to Interpret mg/dL (Negative); Leukocyte Unable to Interpret (Negative); Nitrite Unable to Interpret (Negative); Protein, Urine (Dipstick) Unable to Interpret mg/dL (Neg-Trace); Specific Gravity, Urine 1.015 (1.002-1.036); Urobilinogen UNABLE TO INTERPRET mg/dL (Less than 2); pH, Urine 5.7 (5.0-9.0)
[2022-08-25] MEDS: Azithromycin 500 MG in Sodium Chloride 0.9% 250 ML 250 ML IVPB SCH ×2 (22:08→22:31)
[2022-08-26] MEDS: Acetaminophen 325 MG TAB PO PRN ×2 (01:43→23:39)
[2022-08-26] MEDS: Piperacillin/Tazobactam 3.375 GM in Sodium Chloride 0.9% 100 ML IVPB SCH ×3 (01:45→18:23)
[2022-08-26 05:46] LABS: ALT (SGPT) 14 U/L (8-55); AST (SGOT) 15 U/L (5-34); Albumin 2.5 g/dL (3.4-4.8); Alkaline Phosphatase 43 U/L (40-110); BUN (Urea Nitrogen) 40 mg/dL (8.4-25.7); Bilirubin, Total 0.7 mg/dL (0.2-1.2); Calc. Creatinine Clearance 21 mL/min (70-130); Calcium 8.7 mg/dL (7.8-10.44); Estimated GFR 27; Globulin 4.4 g/dL (2.4-3.5); Glucose 90 mg/dL (83-110); Protein, Total 6.9 g/dL (5.8-8.1)
[2022-08-26 05:53] LABS: #Eosinphils 0.1 thou/uL (0.0-0.7); #Lymphocytes 0.8 thou/uL (1.20-3.40); #Monocytes 0.5 thou/uL (0.11-0.59); #Neutrophils 4.7 thou/uL (1.40-6.50); %Basophils 0.1 % (0.0-1.0); %Lymphocytes 12.8 % (21.0-51.0); %Monocytes 8.5 % (0.0-10.0); %Neutrophils 76.6 % (42.0-75.0); Anisocytosis SLIGHT = 6-15 cells (100X) (0-5/hpf); Band 4 % (5-11); Eosinophils 1 % (0-10); Hemoglobin 9.5 g/dL (14.0-18.0); Hypochromia SLIGHT = 6-15 cells (100X) (0-5/hpf); Lymphocytes 8 % (21-51); MDiff Complete? YES; Mean Corpuscular HGB CONC 29.7 g/dL (32.0-36.0); Mean Corpuscular Hemoglobin 26.7 pg (27.0-31.0); Mean Corpuscular Volume 89.8 fl (78.0-98.0); Mean Platelet Volume 7.3 fL (7.4-10.4); Monocytes 5 % (0-10); Neutrophil 82 % (42-75); Platelet Count 197 10x3/uL (130-400); Platelet Morphology Comment Appears Adequate; Polychromasia SLIGHT = 2-3 cells (100X) (0-2/hpf); RBC Distribution Width 17.9 % (11.5-14.5); Red Blood Cell (RBC) Count 3.54 mill/uL (4.70-6.10); White Blood Cell (WBC) Count 6.1 10x3/uL (4.8-10.8)
[2022-08-26 05:54] LABS: Anion Gap 15 mmol/L (10-20); Carbon Dioxide 34 mmol/L (23-31); Chloride 96 mmol/L (98-107); Potassium 4.1 mmol/L (3.5-5.1); Sodium 141 mmol/L (136-145)
[2022-08-26] MEDS: Furosemide 40 MG/4 ML VIAL SLOW IVP SCH ×2 (06:29→15:46)
[2022-08-26] MEDS ORDERED: FLU VACC QS2022-23(65YR UP)/PF 240 MCG/0.7 ML SYRINGE IM ONE (09:00)
[2022-08-26] MEDS ORDERED: Non-Formulary Item 1 EACH (Multivitamin [Multivitamin] 1 EACH Tablet) PO SCH (09:00)
[2022-08-26] MEDS ORDERED: Tamsulosin HCl 0.4 MG CAP PO SCH (09:00)
[2022-08-26 09:35] LABS: Hemoglobin 9.5 g/dL (14.0-18.0)
[2022-08-26] MEDS: Trospium 20 MG TAB PO SCH ×2 (10:14→21:18)
[2022-08-26] MEDS: Potassium Bicarbonate/Cit Ac 20 MEQ TAB PER TUBE SCH (10:14)
[2022-08-26] MEDS: Famotidine 20 MG TAB PER TUBE SCH (10:14)
[2022-08-26] MEDS: Multivitamin W/ Minerals 1 TAB PO SCH (10:15)
[2022-08-26] MEDS: Ferrous Fumarate 324 MG TAB PO SCH (10:15)
[2022-08-26] MEDS ORDERED: Simethicone Chewable 80 MG TAB PO PRN (17:39)
[2022-08-26] MEDS: Latanoprost 0.005% Ophth Soln 2.5 ml Bottle EA EYE SCH (21:17)
[2022-08-26] MEDS: Mirtazapine 30 MG Soltab PO SCH (21:18)
[2022-08-26] MEDS: Apixaban 5 MG TAB PO SCH (21:19)
[2022-08-26] MEDS: Azithromycin 500 MG in Sodium Chloride 0.9% 250 ML 250 ML IVPB SCH (21:19)
[2022-08-27] MEDS: Piperacillin/Tazobactam 3.375 GM in Sodium Chloride 0.9% 100 ML IVPB SCH ×3 (02:37→17:58)
[2022-08-27 06:11] LABS: #Eosinphils 0.2 thou/uL (0.0-0.7); #Lymphocytes 0.7 thou/uL (1.20-3.40); #Monocytes 0.6 thou/uL (0.11-0.59); #Neutrophils 4.3 thou/uL (1.40-6.50); %Eosinophils 3.5 % (0.0-10.0); %Monocytes 10.3 % (0.0-10.0); %Neutrophils 74.3 % (42.0-75.0); Hemoglobin 9.6 g/dL (14.0-18.0); Mean Corpuscular HGB CONC 31.6 g/dL (32.0-36.0); Mean Corpuscular Hemoglobin 27.7 pg (27.0-31.0); Mean Corpuscular Volume 87.8 fl (78.0-98.0); Mean Platelet Volume 7.2 fL (7.4-10.4); Platelet Count 189 10x3/uL (130-400); RBC Distribution Width 17.5 % (11.5-14.5); Red Blood Cell (RBC) Count 3.46 mill/uL (4.70-6.10); White Blood Cell (WBC) Count 5.8 10x3/uL (4.8-10.8)
[2022-08-27 06:33] LABS: ALT (SGPT) 11 U/L (8-55); AST (SGOT) 17 U/L (5-34); Albumin 2.6 g/dL (3.4-4.8); Alkaline Phosphatase 40 U/L (40-110); Anion Gap 14 mmol/L (10-20); BUN (Urea Nitrogen) 37 mg/dL (8.4-25.7); Bilirubin, Total 0.8 mg/dL (0.2-1.2); Calc. Creatinine Clearance 22 mL/min (70-130); Calcium 8.7 mg/dL (7.8-10.44); Carbon Dioxide 34 mmol/L (23-31); Chloride 93 mmol/L (98-107); Estimated GFR 29; Globulin 4.3 g/dL (2.4-3.5); Glucose 81 mg/dL (83-110); Potassium 4.2 mmol/L (3.5-5.1); Protein, Total 6.9 g/dL (5.8-8.1); Sodium 137 mmol/L (136-145)
[2022-08-27] MEDS: Furosemide 40 MG/4 ML VIAL SLOW IVP SCH ×2 (06:39→13:37)
[2022-08-27] MEDS: Ferrous Fumarate 324 MG TAB PO SCH (08:47)
[2022-08-27] MEDS: Apixaban 5 MG TAB PO SCH ×2 (08:48→20:44)
[2022-08-27] MEDS: Famotidine 20 MG TAB PER TUBE SCH (08:50)
[2022-08-27] MEDS: Finasteride 5 MG TAB PO SCH (08:50)
[2022-08-27] MEDS: Trospium 20 MG TAB PO SCH ×2 (08:51→20:44)
[2022-08-27] MEDS: Potassium Bicarbonate/Cit Ac 20 MEQ TAB PER TUBE SCH (08:57)
[2022-08-27] MEDS: Multivitamin W/ Minerals 1 TAB PO SCH (09:47)
[2022-08-27] MEDS ORDERED: Senokot S 8.6-50 MG TAB PO SCH (11:30)
[2022-08-27] MEDS: Senokot S 8.6-50 MG TAB PO SCH (20:43)
[2022-08-27] MEDS: Mirtazapine 30 MG Soltab PO SCH (20:44)
[2022-08-27] MEDS: Latanoprost 0.005% Ophth Soln 2.5 ml Bottle EA EYE SCH (20:44)
[2022-08-28] MEDS: Piperacillin/Tazobactam 3.375 GM in Sodium Chloride 0.9% 100 ML IVPB SCH ×3 (02:29→20:39)
[2022-08-28] MEDS: Furosemide 40 MG/4 ML VIAL SLOW IVP SCH (05:34)
[2022-08-28 06:20] LABS: Anion Gap 13 mmol/L (10-20); Calc. Creatinine Clearance 18 mL/min (70-130); Calcium 9.2 mg/dL (7.8-10.44); Carbon Dioxide 37 mmol/L (23-31); Chloride 90 mmol/L (98-107); Estimated GFR 23; Glucose 80 mg/dL (83-110); Potassium 4.3 mmol/L (3.5-5.1); Sodium 136 mmol/L (136-145)
[2022-08-28 08:22] LABS: BUN (Urea Nitrogen) 42 mg/dL (8.4-25.7)
[2022-08-28] MEDS: Potassium Bicarbonate/Cit Ac 20 MEQ TAB PER TUBE SCH (08:44)
[2022-08-28] MEDS: Ferrous Fumarate 324 MG TAB PO SCH (08:47)
[2022-08-28] MEDS: Multivitamin W/ Minerals 1 TAB PO SCH (08:47)
[2022-08-28] MEDS: Famotidine 20 MG TAB PER TUBE SCH (08:47)
[2022-08-28] MEDS: Apixaban 5 MG TAB PO SCH ×2 (08:47→20:39)
[2022-08-28] MEDS: Finasteride 5 MG TAB PO SCH (08:47)
[2022-08-28] MEDS: Trospium 20 MG TAB PO SCH ×2 (08:47→20:39)
[2022-08-28] MEDS: Senokot S 8.6-50 MG TAB PO SCH ×2 (08:47→20:40)
[2022-08-28] MEDS ORDERED: Polyethylene Glycol 3350 17 GM Packet PO PRN (13:09)
[2022-08-28] MEDS ORDERED: Docusate 100 MG CAP PO PRN (13:09)
[2022-08-28] MEDS ORDERED: Polyethylene Glycol 3350 17 GM Packet PO SCH (13:15)
[2022-08-28] MEDS ORDERED: Docusate 100 MG CAP PO SCH (13:15)
[2022-08-28] MEDS: Acetaminophen 325 MG TAB PO PRN (16:28)
[2022-08-28] MEDS: Mirtazapine 30 MG Soltab PO SCH (20:40)
[2022-08-28] MEDS: Latanoprost 0.005% Ophth Soln 2.5 ml Bottle EA EYE SCH (20:40)
[2022-08-29 05:40] LABS: Mean Corpuscular HGB CONC 30.2 g/dL (32.0-36.0); Mean Corpuscular Volume 89.2 fl (78.0-98.0); Mean Platelet Volume 7.5 fL (7.4-10.4); Platelet Count 224 10x3/uL (130-400); RBC Distribution Width 17.4 % (11.5-14.5); Red Blood Cell (RBC) Count 3.69 mill/uL (4.70-6.10); White Blood Cell (WBC) Count 7.9 10x3/uL (4.8-10.8)
[2022-08-29 06:00] LABS: Anion Gap 16 mmol/L (10-20); BUN (Urea Nitrogen) 45 mg/dL (8.4-25.7); Calc. Creatinine Clearance 16 mL/min (70-130); Calcium 9.2 mg/dL (7.8-10.44); Carbon Dioxide 30 mmol/L (23-31); Chloride 90 mmol/L (98-107); Estimated GFR 22; Glucose 80 mg/dL (83-110); Potassium 4.2 mmol/L (3.5-5.1); Sodium 132 mmol/L (136-145)
[2022-08-29] MEDS ORDERED: Furosemide 20 MG/2 ML VIAL SLOW IVP SCH ×2 (06:00→09:00)
[2022-08-29] MEDS: Piperacillin/Tazobactam 3.375 GM in Sodium Chloride 0.9% 100 ML IVPB SCH ×2 (08:12→21:27)
[2022-08-29] MEDS: Apixaban 5 MG TAB PO SCH ×2 (08:12→21:28)
[2022-08-29] MEDS: Trospium 20 MG TAB PO SCH ×2 (08:12→21:28)
[2022-08-29] MEDS: Multivitamin W/ Minerals 1 TAB PO SCH (08:12)
[2022-08-29] MEDS: Finasteride 5 MG TAB PO SCH (08:13)
[2022-08-29] MEDS: Senokot S 8.6-50 MG TAB PO SCH ×2 (08:13→21:28)
[2022-08-29] MEDS: Acetaminophen 325 MG TAB PO PRN (08:13)
[2022-08-29] MEDS: Famotidine 20 MG TAB PER TUBE SCH (08:14)
[2022-08-29] MEDS: Ferrous Fumarate 324 MG TAB PO SCH (10:15)
[2022-08-29] MEDS ORDERED: Polyethylene Glycol 3350 17 GM Packet PO SCH (12:00)
[2022-08-29] MEDS: Latanoprost 0.005% Ophth Soln 2.5 ml Bottle EA EYE SCH (21:28)
[2022-08-29] MEDS: Mirtazapine 30 MG Soltab PO SCH (21:28)
[2022-08-30] MEDS: Latanoprost 0.005% Ophth Soln 2.5 ml Bottle EA EYE SCH ×2 (00:35→21:41)
[2022-08-30] MEDS: Trospium 20 MG TAB PO SCH ×3 (00:35→21:41)
[2022-08-30] MEDS: Mirtazapine 30 MG Soltab PO SCH ×2 (00:35→21:41)
[2022-08-30] MEDS: Senokot S 8.6-50 MG TAB PO SCH ×3 (00:35→21:41)
[2022-08-30] MEDS: Apixaban 5 MG TAB PO SCH ×2 (00:35→11:05)
[2022-08-30 08:23] LABS: Hemoglobin 9.1 g/dL (14.0-18.0); Mean Corpuscular HGB CONC 30.9 g/dL (32.0-36.0); Mean Corpuscular Hemoglobin 27.6 pg (27.0-31.0); Mean Corpuscular Volume 89.3 fl (78.0-98.0); Mean Platelet Volume 7.4 fL (7.4-10.4); Platelet Count 220 10x3/uL (130-400); RBC Distribution Width 17.9 % (11.5-14.5); Red Blood Cell (RBC) Count 3.29 mill/uL (4.70-6.10); White Blood Cell (WBC) Count 7.3 10x3/uL (4.8-10.8)
[2022-08-30] MEDS: Multivitamin W/ Minerals 1 TAB PO SCH (08:44)
[2022-08-30] MEDS: Finasteride 5 MG TAB PO SCH (08:44)
[2022-08-30] MEDS: Ferrous Fumarate 324 MG TAB PO SCH (08:44)
[2022-08-30] MEDS: Furosemide 20 MG TAB PO SCH (08:44)
[2022-08-30] MEDS: Famotidine 20 MG TAB PER TUBE SCH (08:45)
[2022-08-30 08:50] LABS: Anion Gap 17 mmol/L (10-20); BUN (Urea Nitrogen) 54 mg/dL (8.4-25.7); Calc. Creatinine Clearance 16 mL/min (70-130); Calcium 8.9 mg/dL (7.8-10.44); Carbon Dioxide 30 mmol/L (23-31); Chloride 93 mmol/L (98-107); Estimated GFR 20; Glucose 76 mg/dL (83-110); Potassium 3.8 mmol/L (3.5-5.1); Sodium 136 mmol/L (136-145)
[2022-08-30] MEDS: Sodium Chloride 0.9% 1,000 ML IV SCH (18:09)
[2022-08-30] MEDS: Apixaban 2.5 MG TAB PO SCH (21:41)
[2022-08-31] MEDS: Sodium Chloride 0.9% 1,000 ML IV SCH (00:12)
[2022-08-31 05:57] LABS: Hemoglobin 8.3 g/dL (14.0-18.0); Mean Corpuscular HGB CONC 30.5 g/dL (32.0-36.0); Mean Corpuscular Hemoglobin 27.3 pg (27.0-31.0); Mean Corpuscular Volume 89.3 fl (78.0-98.0); Platelet Count 217 10x3/uL (130-400); RBC Distribution Width 17.8 % (11.5-14.5); Red Blood Cell (RBC) Count 3.03 mill/uL (4.70-6.10); White Blood Cell (WBC) Count 5.2 10x3/uL (4.8-10.8)
[2022-08-31 06:24] LABS: Anion Gap 13 mmol/L (10-20); BUN (Urea Nitrogen) 49 mg/dL (8.4-25.7); Calc. Creatinine Clearance 19 mL/min (70-130); Calcium 8.4 mg/dL (7.8-10.44); Carbon Dioxide 32 mmol/L (23-31); Chloride 96 mmol/L (98-107); Estimated GFR 26; Glucose 81 mg/dL (83-110); Potassium 3.5 mmol/L (3.5-5.1); Sodium 137 mmol/L (136-145)
[2022-08-31] MEDS: Finasteride 5 MG TAB PO SCH (08:59)
[2022-08-31] MEDS: Ferrous Fumarate 324 MG TAB PO SCH (08:59)
[2022-08-31] MEDS: Famotidine 20 MG TAB PER TUBE SCH (08:59)
[2022-08-31] MEDS: Furosemide 20 MG TAB PO SCH (09:00)
[2022-08-31] MEDS: Apixaban 2.5 MG TAB PO SCH ×2 (09:00→21:02)
[2022-08-31] MEDS: Senokot S 8.6-50 MG TAB PO SCH ×2 (09:00→21:02)
[2022-08-31] MEDS: Trospium 20 MG TAB PO SCH ×2 (09:00→21:02)
[2022-08-31] MEDS: Multivitamin W/ Minerals 1 TAB PO SCH (09:00)
[2022-08-31] MEDS: Potassium Bicarbonate/Cit Ac 20 MEQ TAB PER TUBE SCH (09:00)
[2022-08-31] MEDS: Mirtazapine 30 MG Soltab PO SCH (21:02)
[2022-08-31] MEDS: Latanoprost 0.005% Ophth Soln 2.5 ml Bottle EA EYE SCH (21:02)
[2022-09-01 05:24] LABS: Hemoglobin 8.4 g/dL (14.0-18.0); Mean Corpuscular HGB CONC 30.8 g/dL (32.0-36.0); Mean Corpuscular Hemoglobin 27.5 pg (27.0-31.0); Mean Corpuscular Volume 89.2 fl (78.0-98.0); Mean Platelet Volume 7.1 fL (7.4-10.4); Platelet Count 217 10x3/uL (130-400); RBC Distribution Width 17.9 % (11.5-14.5); Red Blood Cell (RBC) Count 3.06 mill/uL (4.70-6.10); White Blood Cell (WBC) Count 5.1 10x3/uL (4.8-10.8)
[2022-09-01 05:44] LABS: Anion Gap 10 mmol/L (10-20); BUN (Urea Nitrogen) 41 mg/dL (8.4-25.7); Calc. Creatinine Clearance 23 mL/min (70-130); Calcium 8.4 mg/dL (7.8-10.44); Carbon Dioxide 31 mmol/L (23-31); Chloride 99 mmol/L (98-107); Estimated GFR 31; Glucose 85 mg/dL (83-110); Potassium 4.2 mmol/L (3.5-5.1); Sodium 136 mmol/L (136-145)
[2022-09-01] MEDS: Trospium 20 MG TAB PO SCH (08:57)
[2022-09-01] MEDS: Potassium Bicarbonate/Cit Ac 20 MEQ TAB PER TUBE SCH (08:57)
[2022-09-01] MEDS: Multivitamin W/ Minerals 1 TAB PO SCH (08:57)
[2022-09-01] MEDS: Senokot S 8.6-50 MG TAB PO SCH (08:57)
[2022-09-01] MEDS: Famotidine 20 MG TAB PER TUBE SCH (08:58)
[2022-09-01] MEDS: Apixaban 2.5 MG TAB PO SCH (08:58)
[2022-09-01] MEDS: Finasteride 5 MG TAB PO SCH (08:58)
[2022-09-01] MEDS: Ferrous Fumarate 324 MG TAB PO SCH (08:58)
[2022-09-01] MEDS: Furosemide 20 MG TAB PO SCH (08:58)
[2022-09-01 15:53] VITALS: BP 101/55; TEMP 97.9
== END 2022-09-01 17:41 | disposition home health service (06) | DRG 698 ==
LOC: ERS 17:51 → ERHOLD 21:58 → OBSVTOIN 22:29 → CCU 08-23 00:46 → NEURO 08-25 20:09
PROVIDERS: ADMIT Emergency Medicine; ATTEND Emergency Medicine
PROC: 5A1935Z Respiratory Ventilation, Less than 24 Consecutive Hours (ICD-10-PCS; principal; 2022-08-22)
PROC: 0BH17EZ Insertion of Endotracheal Airway into Trachea, Via Natural or Artificial Opening (ICD-10-PCS; 2022-08-22)
PROC: 0D9670Z Drainage of Stomach with Drainage Device, Via Natural or Artificial Opening (ICD-10-PCS; 2022-08-22)
PROC: 02HV33Z Insertion of Infusion Device into Superior Vena Cava, Percutaneous Approach (ICD-10-PCS; 2022-08-22)
PROC: B548ZZA Ultrasonography of Superior Vena Cava, Guidance (ICD-10-PCS; 2022-08-22)
PROC: 3E04329 Introduction of Other Anti-infective into Central Vein, Percutaneous Approach (ICD-10-PCS; 2022-08-22)
PROC: 0T2BX0Z Change Drainage Device in Bladder, External Approach (ICD-10-PCS; 2022-08-23)
DX: T83.518A Infection and inflammatory reaction due to other urinary catheter, initial encounter (principal); A41.51 Sepsis due to Escherichia coli [E. coli]; G93.41 Metabolic encephalopathy; I50.33 Acute on chronic diastolic (congestive) heart failure; J96.01 Acute respiratory failure with hypoxia; J96.02 Acute respiratory failure with hypercapnia; R65.21 Severe sepsis with septic shock; J69.0 Pneumonitis due to inhalation of food and vomit; I13.0 Hypertensive heart and chronic kidney disease with heart failure and stage 1 through stage 4 chronic kidney disease, or unspecified chronic kidney disease; N13.8 Other obstructive and reflux uropathy; I82.443 Acute embolism and thrombosis of tibial vein, bilateral; I31.39 Other pericardial effusion (noninflammatory); N18.4 Chronic kidney disease, stage 4 (severe); N30.01 Acute cystitis with hematuria; H40.9 Unspecified glaucoma; G93.89 Other specified disorders of brain; N40.1 Benign prostatic hyperplasia with lower urinary tract symptoms; D63.1 Anemia in chronic kidney disease; Z88.1 Allergy status to other antibiotic agents; Z79.899 Other long term (current) drug therapy; Z86.11 Personal history of tuberculosis; Z87.891 Personal history of nicotine dependence; I45.10 Unspecified right bundle-branch block; I27.21 Secondary pulmonary arterial hypertension; E78.00 Pure hypercholesterolemia, unspecified; Y84.6 Urinary catheterization as the cause of abnormal reaction of the patient, or of later complication, without mention of misadventure at the time of the procedure
CPT/HCPCS: 31500; 36415; 36416; 36556; 36600; 70450; 70551; 71045; 74230; 76770; 80048; 80053; 80061; 80306; 81003; 81015; 82140; 82550; 82805; 83735; 83880; 84145; 84443; 84484; 85025; 85027; 85610; 85730; 86850; 86900; 86901; 87077; 87086; 87186; 87449; 87811; 87899; 93005; 93306; 93798; 93880; 93970; 94002; 94003; 94640; 95712; 95819; 95957; 96365; 96366; 96375; J0456; J0461; J1644; J1940; J1956; J2543; J3490; J7030; J7050; J7620; U0002

== ENCOUNTER 2022-09-28 12:57 | Inpatient (IN) | payer MEDICARE, OTHER ==
[2022-09-28 14:55] LABS: #Lymphocytes 0.5 thou/uL (1.20-3.40); #Monocytes 0.6 thou/uL (0.11-0.59); #Neutrophils 6.1 thou/uL (1.40-6.50); %Basophils 0.3 % (0.0-1.0); %Eosinophils 0.2 % (0.0-10.0); %Lymphocytes 7.2 % (21.0-51.0); %Monocytes 7.6 % (0.0-10.0); %Neutrophils 84.7 % (42.0-75.0); Hemoglobin 9.3 g/dL (14.0-18.0); Mean Corpuscular HGB CONC 30.5 g/dL (32.0-36.0); Mean Corpuscular Hemoglobin 27.2 pg (27.0-31.0); Platelet Count 292 10x3/uL (130-400); RBC Distribution Width 15.9 % (11.5-14.5); Red Blood Cell (RBC) Count 3.42 mill/uL (4.70-6.10); White Blood Cell (WBC) Count 7.2 10x3/uL (4.8-10.8)
[2022-09-28 15:22] LABS: ALT (SGPT) 10 U/L (8-55); AST (SGOT) 17 U/L (5-34); Albumin 2.6 g/dL (3.4-4.8); Alkaline Phosphatase 52 U/L (40-110); Anion Gap 11 mmol/L (10-20); BUN (Urea Nitrogen) 50 mg/dL (8.4-25.7); Bilirubin, Total 0.3 mg/dL (0.2-1.2); Calc. Creatinine Clearance 0 mL/min (70-130); Calcium 8.7 mg/dL (7.8-10.44); Carbon Dioxide 34 mmol/L (23-31); Chloride 99 mmol/L (98-107); Estimated GFR 35; Globulin 4.9 g/dL (2.4-3.5); Glucose 113 mg/dL (83-110); Potassium 4.5 mmol/L (3.5-5.1); Protein, Total 7.5 g/dL (5.8-8.1); Sodium 139 mmol/L (136-145)
[2022-09-28 16:11] LABS: INR-International Normal Ratio 1.5; Prothrombin Time 18.9 sec (12.0-14.7)
[2022-09-28 16:12] LABS: PTT 40.8 sec (22.9-36.1)
[2022-09-28] MEDS ORDERED: Azithromycin 500 MG VIAL ONE (16:18)
[2022-09-28 16:37] LABS: SARS-CoV-2 NAA Rapid Test Not Detected (NotDetected)
[2022-09-28] MEDS ORDERED: Acetaminophen 325 MG TAB PO PRN (16:58)
[2022-09-28] MEDS ORDERED: Ondansetron PF 4 MG/2 ML Vial IVP PRN (16:58)
[2022-09-28 17:02] LABS: Bilirubin Negative (Negative); Blood, Urine 2+ (Negative); Clarity Clear (Clear); Glucose, Urine (Dipstick) Normal (Negative); Ketone, Urine Negative (Negative); Leukocyte 500 Leu/uL (Negative); Nitrite Negative (Negative); Protein, Urine (Dipstick) 20 mg/dL (Neg-Trace); Specific Gravity, Urine 1.014 (1.002-1.036); Squamous Epithelial None Seen HPF (0-3); Urobilinogen Normal mg/dL (Less than 2); WBC/HPF Greater than 50 HPF (0-3)
[2022-09-28] MEDS ORDERED: Ipratropium/Albuterol 3 ML NEB NEB PRN (17:02)
[2022-09-28 17:09] LABS: Bacteria/HPF 1+ HPF (None Seen)
[2022-09-28] MEDS ORDERED: Furosemide 40 MG/4 ML VIAL SLOW IVP SCH (17:30)
[2022-09-28] MEDS ORDERED: Furosemide 40 MG/4 ML VIAL ONE (19:29)
[2022-09-28 22:50] VITALS: BMI 22.4
[2022-09-28] MEDS: Trospium 20 MG TAB PO SCH (23:49)
[2022-09-28] MEDS: Apixaban 2.5 MG TAB PO SCH (23:49)
[2022-09-28] MEDS: Mirtazapine 30 MG Soltab PO SCH (23:49)
[2022-09-29 07:20] LABS: ALT (SGPT) 9 U/L (8-55); AST (SGOT) 14 U/L (5-34); Albumin 2.2 g/dL (3.4-4.8); Alkaline Phosphatase 46 U/L (40-110); Anion Gap 11 mmol/L (10-20); BUN (Urea Nitrogen) 44 mg/dL (8.4-25.7); Bilirubin, Total 0.3 mg/dL (0.2-1.2); Calc. Creatinine Clearance 30 mL/min (70-130); Calcium 8.6 mg/dL (7.8-10.44); Carbon Dioxide 34 mmol/L (23-31); Chloride 101 mmol/L (98-107); Estimated GFR 42; Globulin 4.5 g/dL (2.4-3.5); Glucose 84 mg/dL (83-110); Magnesium 2.3 mg/dL (1.6-2.6); Potassium 4.8 mmol/L (3.5-5.1); Protein, Total 6.7 g/dL (5.8-8.1); Sodium 141 mmol/L (136-145)
[2022-09-29 07:35] LABS: #Lymphocytes 0.5 thou/uL (1.20-3.40); #Monocytes 0.5 thou/uL (0.11-0.59); #Neutrophils 5.5 thou/uL (1.40-6.50); %Eosinophils 0.2 % (0.0-10.0); %Lymphocytes 7.7 % (21.0-51.0); %Monocytes 7.8 % (0.0-10.0); %Neutrophils 84.4 % (42.0-75.0); Hemoglobin 8.7 g/dL (14.0-18.0); Mean Corpuscular HGB CONC 30.5 g/dL (32.0-36.0); Mean Corpuscular Hemoglobin 27.7 pg (27.0-31.0); Mean Corpuscular Volume 90.8 fl (78.0-98.0); Platelet Count 279 10x3/uL (130-400); RBC Distribution Width 15.7 % (11.5-14.5); Red Blood Cell (RBC) Count 3.15 mill/uL (4.70-6.10); White Blood Cell (WBC) Count 6.5 10x3/uL (4.8-10.8)
[2022-09-29] MEDS: Apixaban 2.5 MG TAB PO SCH ×2 (08:53→21:21)
[2022-09-29] MEDS: Finasteride 5 MG TAB PO SCH (08:53)
[2022-09-29] MEDS: Trospium 20 MG TAB PO SCH ×2 (08:53→21:20)
[2022-09-29] MEDS: Spironolactone 25 MG TAB PO SCH (08:54)
[2022-09-29] MEDS ORDERED: cefTRIAXone\\ROCEPHIN 1 GM in Sodium Chloride 0.9% 100 ML IVPB SCH (09:00)
[2022-09-29] MEDS ORDERED: Furosemide 40 MG/4 ML VIAL SLOW IVP SCH (09:00)
[2022-09-29] MEDS: Senokot S 8.6-50 MG TAB PO PRN ×2 (10:00→21:21)
[2022-09-29] MEDS: Azithromycin 500 MG in Sodium Chloride 0.9% 250 ML 250 ML IVPB SCH (17:15)
[2022-09-29] MEDS: Mirtazapine 30 MG Soltab PO SCH (21:22)
[2022-09-30 05:57] LABS: #Lymphocytes 0.8 thou/uL (1.20-3.40); #Monocytes 0.6 thou/uL (0.11-0.59); #Neutrophils 5.2 thou/uL (1.40-6.50); %Basophils 0.3 % (0.0-1.0); %Eosinophils 0.2 % (0.0-10.0); %Lymphocytes 11.4 % (21.0-51.0); %Monocytes 9.6 % (0.0-10.0); %Neutrophils 78.5 % (42.0-75.0); Hemoglobin 8.8 g/dL (14.0-18.0); Mean Corpuscular HGB CONC 30.4 g/dL (32.0-36.0); Mean Corpuscular Hemoglobin 27.3 pg (27.0-31.0); Mean Corpuscular Volume 89.9 fl (78.0-98.0); Mean Platelet Volume 7.2 fL (7.4-10.4); Platelet Count 250 10x3/uL (130-400); RBC Distribution Width 15.7 % (11.5-14.5); Red Blood Cell (RBC) Count 3.22 mill/uL (4.70-6.10); White Blood Cell (WBC) Count 6.6 10x3/uL (4.8-10.8)
[2022-09-30 06:13] LABS: Albumin 2.2 g/dL (3.4-4.8); Anion Gap 10 mmol/L (10-20); BUN (Urea Nitrogen) 49 mg/dL (8.4-25.7); BUN/Creatinine Ratio 25.52; Calc. Creatinine Clearance 26 mL/min (70-130); Calcium 8.8 mg/dL (7.8-10.44); Carbon Dioxide 32 mmol/L (23-31); Chloride 101 mmol/L (98-107); Estimated GFR 34; Glucose 100 mg/dL (83-110); Potassium 4.8 mmol/L (3.5-5.1); Sodium 138 mmol/L (136-145)
[2022-09-30] MEDS: Trospium 20 MG TAB PO SCH ×2 (08:21→21:19)
[2022-09-30] MEDS: Finasteride 5 MG TAB PO SCH (08:21)
[2022-09-30] MEDS: Apixaban 2.5 MG TAB PO SCH ×2 (08:21→21:19)
[2022-09-30] MEDS ORDERED: Sodium Chloride 0.9% 500 ML IV SCH (09:45)
[2022-09-30 10:18] LABS: Lactic Acid 0.9 mmol/L (0.5-2.2)
[2022-09-30] MEDS ORDERED: Meropenem 1 GM in Sodium Chloride 0.9% 100 ML IVPB SCH ×2 (11:15→14:00)
[2022-09-30] MEDS ORDERED: Albumin 25% 25 GM/100 ML BOT IVPB SCH (12:00)
[2022-09-30] MEDS ORDERED: Lactated Ringer's 1,000 ML IV SCH (12:15)
[2022-09-30 12:22] LABS: Actual Bicarbonate (HCO3v) 31 mEq/L (22-28); Base Excess 6.5 mEq/L (-2.0 to +3.0); Calcium, Ionized (venous) 1.12 mmol/L (1.16-1.32); Chloride (VBG) 102 mmol/L (98-106); Hemoglobin (Hb) 9.6 g/dL (12.6-17.4); Potassium (VBG) 4.51 mmol/L (3.70-5.30); Sodium 135.9 mmol/L (133-146); pH (venous) 7.44 (7.32-7.43)
[2022-09-30] MEDS: Azithromycin 500 MG in Sodium Chloride 0.9% 250 ML 250 ML IVPB SCH (17:39)
[2022-09-30] MEDS: Meropenem 500 MG in Sodium Chloride 0.9% 100 ML IVPB SCH (21:19)
[2022-09-30] MEDS: Senokot S 8.6-50 MG TAB PO PRN (21:19)
[2022-09-30 22:45] LABS: #Lymphocytes 0.5 thou/uL (1.20-3.40); #Monocytes 0.5 thou/uL (0.11-0.59); #Neutrophils 6.6 thou/uL (1.40-6.50); %Eosinophils 0.2 % (0.0-10.0); %Lymphocytes 6.8 % (21.0-51.0); %Monocytes 6.8 % (0.0-10.0); %Neutrophils 86.2 % (42.0-75.0); Hemoglobin 8.9 g/dL (14.0-18.0); Mean Corpuscular HGB CONC 30.8 g/dL (32.0-36.0); Mean Corpuscular Hemoglobin 27.5 pg (27.0-31.0); Mean Corpuscular Volume 89.2 fl (78.0-98.0); Platelet Count 240 10x3/uL (130-400); RBC Distribution Width 15.7 % (11.5-14.5); Red Blood Cell (RBC) Count 3.23 mill/uL (4.70-6.10); White Blood Cell (WBC) Count 7.6 10x3/uL (4.8-10.8)
[2022-09-30] MEDS: Mirtazapine 30 MG Soltab PO SCH (23:26)
[2022-10-01 00:08] LABS: Anion Gap 12 mmol/L (10-20); BUN (Urea Nitrogen) 51 mg/dL (8.4-25.7); Calc. Creatinine Clearance 29 mL/min (70-130); Calcium 9.1 mg/dL (7.8-10.44); Carbon Dioxide 31 mmol/L (23-31); Chloride 102 mmol/L (98-107); Estimated GFR 37; Glucose 118 mg/dL (83-110); Magnesium 2.5 mg/dL (1.6-2.6); Potassium 4.7 mmol/L (3.5-5.1); Sodium 140 mmol/L (136-145)
[2022-10-01] MEDS ORDERED: Meropenem 500 MG in Sodium Chloride 0.9% 100 ML IVPB SCH (02:00)
[2022-10-01] MEDS: Meropenem 500 MG in Sodium Chloride 0.9% 100 ML IVPB SCH ×2 (08:19→20:37)
[2022-10-01] MEDS: Senokot S 8.6-50 MG TAB PO PRN ×2 (08:21→20:38)
[2022-10-01] MEDS: Trospium 20 MG TAB PO SCH ×2 (08:22→20:38)
[2022-10-01] MEDS: Apixaban 2.5 MG TAB PO SCH ×2 (08:22→20:38)
[2022-10-01] MEDS: Finasteride 5 MG TAB PO SCH (08:22)
[2022-10-01] MEDS ORDERED: Furosemide 40 MG/4 ML VIAL SLOW IVP SCH (16:00)
[2022-10-01] MEDS: Azithromycin 500 MG in Sodium Chloride 0.9% 250 ML 250 ML IVPB SCH (17:03)
[2022-10-01] MEDS: Mirtazapine 30 MG Soltab PO SCH (20:38)
[2022-10-02 05:07] LABS: #Eosinphils 0.1 thou/uL (0.0-0.7); #Lymphocytes 0.3 thou/uL (1.20-3.40); #Monocytes 0.7 thou/uL (0.11-0.59); #Neutrophils 7.4 thou/uL (1.40-6.50); %Basophils 0.1 % (0.0-1.0); %Eosinophils 0.6 % (0.0-10.0); %Lymphocytes 3.7 % (21.0-51.0); %Monocytes 7.8 % (0.0-10.0); %Neutrophils 87.9 % (42.0-75.0); Hemoglobin 9.4 g/dL (14.0-18.0); Mean Corpuscular Hemoglobin 27.2 pg (27.0-31.0); Mean Corpuscular Volume 90.8 fl (78.0-98.0); Mean Platelet Volume 7.2 fL (7.4-10.4); Platelet Count 228 10x3/uL (130-400); RBC Distribution Width 15.5 % (11.5-14.5); Red Blood Cell (RBC) Count 3.44 mill/uL (4.70-6.10); White Blood Cell (WBC) Count 8.4 10x3/uL (4.8-10.8)
[2022-10-02 05:34] LABS: Anion Gap 12 mmol/L (10-20); BUN (Urea Nitrogen) 49 mg/dL (8.4-25.7); Calc. Creatinine Clearance 34 mL/min (70-130); Carbon Dioxide 31 mmol/L (23-31); Chloride 101 mmol/L (98-107); Estimated GFR 46; Glucose 104 mg/dL (83-110); Potassium 4.5 mmol/L (3.5-5.1); Sodium 139 mmol/L (136-145)
[2022-10-02] MEDS: Trospium 20 MG TAB PO SCH ×2 (08:34→20:45)
[2022-10-02] MEDS: Apixaban 2.5 MG TAB PO SCH ×2 (08:34→20:45)
[2022-10-02] MEDS: Furosemide 40 MG/4 ML VIAL SLOW IVP SCH (08:34)
[2022-10-02] MEDS: Meropenem 500 MG in Sodium Chloride 0.9% 100 ML IVPB SCH (08:34)
[2022-10-02] MEDS: Finasteride 5 MG TAB PO SCH (08:34)
[2022-10-02 12:54] LABS: Base Excess 12.4 mEq/L (-2.0 to +3.0); Chloride (VBG) 100 mmol/L (98-106); Hemoglobin (Hb) 10.6 g/dL (12.6-17.4); Potassium (VBG) 4.33 mmol/L (3.70-5.30); Sodium 139.6 mmol/L (133-146); pH (venous) 7.32 (7.32-7.43)
[2022-10-02 12:55] LABS: Actual Bicarbonate (HCO3v) 41 mEq/L (22-28)
[2022-10-02 14:45] LABS: Actual Bicarbonate (HCO3a) 38.2 mEq/L (22-28); Base Excess (BEa) 11.7 mEq/L (-2.0 to +3.0); Carboxyhemoglobin (COHb) 0.6 gm% (0.0-3.0); Hemoglobin (Hb) 10.1 g/dL (14.0-18.0); Potassium - ABG Lab 4.31 mmol/L (3.70-5.30); pH, Arterial 7.41 (7.35-7.45)
[2022-10-02 14:51] LABS: O2 Tension (PaO2), arterial 46.9 mmHg (> 60.0); Puncture Site RRA
[2022-10-02] MEDS ORDERED: Furosemide 40 MG/4 ML VIAL SLOW IVP SCH (16:30)
[2022-10-02] MEDS ORDERED: Albumin 25% 25 GM/100 ML BOT IVPB SCH (16:30)
[2022-10-02] MEDS: Azithromycin 500 MG in Sodium Chloride 0.9% 250 ML 250 ML IVPB SCH (18:16)
[2022-10-02] MEDS: Meropenem 1 GM in Sodium Chloride 0.9% 100 ML IVPB SCH (20:45)
[2022-10-02] MEDS: Mirtazapine 30 MG Soltab PO SCH ×2 (20:45→21:00)
[2022-10-03] MEDS: Mirtazapine 30 MG Soltab PO SCH ×2 (01:33→20:55)
[2022-10-03] MEDS: Spironolactone 25 MG TAB PO SCH (08:33)
[2022-10-03] MEDS: Finasteride 5 MG TAB PO SCH (08:33)
[2022-10-03] MEDS: Apixaban 2.5 MG TAB PO SCH ×2 (08:33→20:55)
[2022-10-03] MEDS: Trospium 20 MG TAB PO SCH ×2 (08:33→20:55)
[2022-10-03] MEDS: Meropenem 1 GM in Sodium Chloride 0.9% 100 ML IVPB SCH ×2 (08:33→20:55)
[2022-10-03] MEDS: Furosemide 40 MG/4 ML VIAL SLOW IVP SCH (09:55)
[2022-10-03] MEDS: Azithromycin 500 MG in Sodium Chloride 0.9% 250 ML 250 ML IVPB SCH (18:00)
[2022-10-04 05:35] LABS: BUN (Urea Nitrogen) 44 mg/dL (8.4-25.7); Calc. Creatinine Clearance 39 mL/min (70-130); Calcium 9.5 mg/dL (7.8-10.44); Estimated GFR 57; Glucose 90 mg/dL (83-110)
[2022-10-04 05:45] LABS: Anion Gap 18 mmol/L (10-20); Carbon Dioxide 31 mmol/L (23-31); Chloride 96 mmol/L (98-107); Potassium 4.3 mmol/L (3.5-5.1); Sodium 141 mmol/L (136-145)
[2022-10-04] MEDS: Spironolactone 25 MG TAB PO SCH (08:56)
[2022-10-04] MEDS: Trospium 20 MG TAB PO SCH ×2 (08:56→22:07)
[2022-10-04] MEDS: Apixaban 2.5 MG TAB PO SCH ×2 (08:57→22:07)
[2022-10-04] MEDS: Meropenem 1 GM in Sodium Chloride 0.9% 100 ML IVPB SCH ×2 (08:57→22:05)
[2022-10-04] MEDS: Finasteride 5 MG TAB PO SCH (08:57)
[2022-10-04] MEDS: Furosemide 40 MG/4 ML VIAL SLOW IVP SCH (08:59)
[2022-10-04] MEDS: Azithromycin 500 MG in Sodium Chloride 0.9% 250 ML 250 ML IVPB SCH (17:49)
[2022-10-04] MEDS: Senokot S 8.6-50 MG TAB PO PRN (22:07)
[2022-10-04] MEDS: Mirtazapine 30 MG Soltab PO SCH (22:08)
[2022-10-05] MEDS ORDERED: Polyethylene Glycol 3350 17 GM Packet PO SCH (05:15)
[2022-10-05] MEDS: Trospium 20 MG TAB PO SCH ×2 (09:02→20:48)
[2022-10-05] MEDS: Finasteride 5 MG TAB PO SCH (09:02)
[2022-10-05] MEDS: Apixaban 2.5 MG TAB PO SCH ×2 (09:02→20:48)
[2022-10-05] MEDS: Meropenem 1 GM in Sodium Chloride 0.9% 100 ML IVPB SCH ×2 (09:03→20:46)
[2022-10-05] MEDS: Spironolactone 25 MG TAB PO SCH (09:03)
[2022-10-05] MEDS: Furosemide 40 MG TAB PO SCH ×2 (09:03→14:51)
[2022-10-05] MEDS: Azithromycin 500 MG in Sodium Chloride 0.9% 250 ML 250 ML IVPB SCH (17:15)
[2022-10-05] MEDS: Polyethylene Glycol 3350 17 GM Packet PO SCH (20:47)
[2022-10-05] MEDS: Mirtazapine 30 MG Soltab PO SCH (20:48)
[2022-10-06] MEDS: Spironolactone 25 MG TAB PO SCH (08:20)
[2022-10-06] MEDS: Polyethylene Glycol 3350 17 GM Packet PO SCH (08:20)
[2022-10-06] MEDS: Meropenem 1 GM in Sodium Chloride 0.9% 100 ML IVPB SCH ×2 (08:20→21:36)
[2022-10-06] MEDS: Furosemide 40 MG TAB PO SCH ×2 (08:20→13:29)
[2022-10-06] MEDS: Apixaban 2.5 MG TAB PO SCH ×2 (08:20→21:36)
[2022-10-06] MEDS: Finasteride 5 MG TAB PO SCH (08:20)
[2022-10-06] MEDS: Trospium 20 MG TAB PO SCH ×2 (08:20→21:36)
[2022-10-06] MEDS: Azithromycin 500 MG in Sodium Chloride 0.9% 250 ML 250 ML IVPB SCH (16:40)
[2022-10-06] MEDS: Mirtazapine 30 MG Soltab PO SCH (21:36)
[2022-10-07] MEDS: Polyethylene Glycol 3350 17 GM Packet PO SCH ×2 (03:17→08:54)
[2022-10-07] MEDS: Meropenem 1 GM in Sodium Chloride 0.9% 100 ML IVPB SCH (08:53)
[2022-10-07] MEDS: Furosemide 40 MG TAB PO SCH ×2 (08:54→15:17)
[2022-10-07] MEDS: Finasteride 5 MG TAB PO SCH (08:54)
[2022-10-07] MEDS: Spironolactone 25 MG TAB PO SCH (08:54)
[2022-10-07] MEDS: Trospium 20 MG TAB PO SCH (08:54)
[2022-10-07] MEDS: Apixaban 2.5 MG TAB PO SCH (08:55)
[2022-10-07 11:58] VITALS: TEMP 97.1
[2022-10-07 15:16] VITALS: BP 118/67
[2022-10-07] MEDS: Azithromycin 500 MG in Sodium Chloride 0.9% 250 ML 250 ML IVPB SCH (17:06)
== END 2022-10-07 17:11 | disposition home health service (06) | DRG 193 ==
LOC: ERS 12:57 → ERHOLD 16:58 → NEURO 22:15
PROVIDERS: ADMIT Internal Medicine; ATTEND Internal Medicine
DX: J18.9 Pneumonia, unspecified organism (principal); Z66 Do not resuscitate; Z51.5 Encounter for palliative care; Z20.822 Contact with and (suspected) exposure to COVID-19; G93.41 Metabolic encephalopathy; J96.01 Acute respiratory failure with hypoxia; I50.33 Acute on chronic diastolic (congestive) heart failure; T83.518A Infection and inflammatory reaction due to other urinary catheter, initial encounter; N39.0 Urinary tract infection, site not specified; N17.9 Acute kidney failure, unspecified; Z16.23 Resistance to quinolones and fluoroquinolones; Z16.11 Resistance to penicillins; I13.0 Hypertensive heart and chronic kidney disease with heart failure and stage 1 through stage 4 chronic kidney disease, or unspecified chronic kidney disease; R33.9 Retention of urine, unspecified; Y84.6 Urinary catheterization as the cause of abnormal reaction of the patient, or of later complication, without mention of misadventure at the time of the procedure; N18.30 Chronic kidney disease, stage 3 unspecified; I07.1 Rheumatic tricuspid insufficiency; F39 Unspecified mood [affective] disorder; B96.20 Unspecified Escherichia coli [E. coli] as the cause of diseases classified elsewhere; Z86.718 Personal history of other venous thrombosis and embolism; Z88.1 Allergy status to other antibiotic agents; Z79.899 Other long term (current) drug therapy; Z79.01 Long term (current) use of anticoagulants
CPT/HCPCS: 36415; 36416; 36600; 71045; 80048; 80053; 80069; 81003; 81015; 82533; 82805; 83605; 83735; 83880; 84145; 84484; 85025; 85610; 85730; 86850; 86900; 86901; 87040; 87077; 87086; 87186; 87811; 93005; 94760; 96365; 96366; 96367; 97139; J0456; J1940; J1956; J2185; J3490; J7030; J7050; J7120; P9047